=== PATIENT | female | born 2000 | race Hispanic/Latino ===

== ENCOUNTER 2025-02-16 20:08 | Emergency (ER) | payer SELFPAY ==
[2025-02-16] MEDS ORDERED: ONDANSETRON 4 MG/2 ML VIAL ONE ×2 (20:32→20:48)
[2025-02-16] MEDS ORDERED: KETOROLAC 30 MG/ML INJ ONE (20:33)
[2025-02-16] MEDS ORDERED: CEPHALEXIN 250 MG CAP ONE (20:33)
[2025-02-16] MEDS ORDERED: SMZ./TMP. 800/160 MG TABLET ONE (20:33)
[2025-02-16] MEDS ORDERED: MORPHINE 4 MG/ML SYR ONE (20:33)
[2025-02-16] MEDS ORDERED: TDAP (DIPHTH,PERTUSS(ACELL),TET VAC) 0.5 ML VIAL IMVAC ONE (20:34)
[2025-02-16] MEDS ORDERED: LORAZEPAM 1 MG TABLET ONE (20:34)
[2025-02-16] MEDS ORDERED: NA CHLORIDE 0.9% 1,000 ML ONE (20:34)
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
[2025-02-17] MEDS ORDERED: LIDOCAINE 1% 20 ML MDV ONE (00:48)
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
[2025-02-17 01:46] VITALS: TEMP 98.4
[2025-02-17 02:05] VITALS: O2SAT 100
[2025-02-17 02:06] VITALS: BP 104/70
== END 2025-02-17 01:36 | disposition home or self-care (01) ==
LOC: ER 20:08
DX: S01.81XA Laceration without foreign body of other part of head, initial encounter (principal); S06.0X9A Concussion with loss of consciousness of unspecified duration, initial encounter; S60.512A Abrasion of left hand, initial encounter; S19.9XXA Unspecified injury of neck, initial encounter; Y04.8XXA Assault by other bodily force, initial encounter
CPT/HCPCS: 12013; 36415; 70450; 70491; 84703; 96361; 96372; 96374; 96375; 99285; J2003; J2405; J7030; Q9967

== ENCOUNTER 2025-03-10 13:10 | Emergency (ER) | payer OTHER ==
--- OUTSIDE RECORDS SUMMARY | 2025-03-10 13:17 | XMS REPORT | Continuity of Care Document ---
Author Name Unknown Address [address] [facility] [place] [address] Organization [facility] [place] Address [address] [facility] [place] [address] Care Team Providers Care [place] [employer] Name Role Phone Pcp, Patient Does Not Have A Primary Care Physic charles Doctor Unassigned, [place] Attending Clinician U ASHLI Hurtado Attending Clinician ASHLI Lewis Attending Clinician Kennedi Barr RN, Anny Delgado Attending Clinician UnaAshli Marquez MD Attending Clinician + [phone] Jaclyn Catherine MD Attending Clinician [phone] CINDY MAXWELL Attending Clinician Unavailable CINDY MAXWELL Attending Clinician Unavailable CINDY MAXWELL Attending Clinician Unavailable Ultrasound, Ang-Mfkevin Attending Clinician UnavailCindy Vanegas MD Attending Clinician [phone] GUERA CRAWFORD Attending Clinician Unavailable GUERA CRAWFORD Attending Clinician Unavailable GUERA CRAWFORD Attending Clinician Unavailable Martha Lyles MD Attending Clinician [phone] PILLO HORNER Attending Clinician Unavailable PILLO HORNER Attending Clinician Unavailable Lab, Ang - Db Attending Clinician Unavailable FLACO NUNO Attending Clinician Flaco Minor MD Ikuvbogie Attending Clinician + SANG FRIAS Attending Clinician UnavailMARTHA Mason Attending Clinician Unavailable Doctor Unassigned, [place] Attending Clinician U navailable JUAN C, ANG CAM Attending Clinician Unavailable Juan C UREÑA, Ang uQezada Attending Clinician [phone] Jenni Vega MD Attending Clinician + [phone] Ivelisse UREÑA, Alondra Arteaga Attending Clinician [phone], Adc Lab Attending Clinician Unavailable GUERA CRAWFORD Admitting Clinician Unavailable CESIADARRIAN BENNETT Admitting Clinician Unavailable SHIMON GALVANSOL Admitting Clinician Kennedi Galvan MD, Ashli Admitting Clinician +- [phone] JUAN C, ANG CAM Admitting Clinician Unavailable Juan C UREÑA, Ang Quezada Admitting Clinician [phone] Payers Payer Name Policy Type Policy Number Effective Date Expirati on Date Source [facility] STAR [id number] 2024 00:00:00 [facility] [place] [facility] [id number] 00:00:00 [facility] [id number] 2023 00:00:00 Problems Condition Name Condition Details Condition Category Status Onset Date Resolution Date Last Treatment Date Treating Clinician Comments Source 34 weeks gestation of 34 weeks gestation of Disease Active 07-09 00:00: 00 [facility] labor in third trimester without delivery labor in third trimester without delivery Disease Active 07-09 00:00: 00 [facility] Single liveborn, born in hospital, delivered by vaginal delivery Single liveborn, born in hospital, delivered by vaginal delivery Disease Active 07-09 00:00: 00 [facility] Obesity (BMI 30-39.9) Obesity (BMI 30-39.9) Disease Active 06-11 00:00: 00 [facility] uterine contractio ns uterine contractio ns Disease Active 06-11 00:00: 00 [facility] Anemia of mother in , antepartum Anemia of mother in , antepartum Disease Active -20 00:00: 00 [facility] Anemia of mother in , antepartum Anemia of mother in , antepartum Disease Active 20 00:00: 00 [facility] 39 weeks gestation of 39 weeks gestation of Disease Active -06 00:00: 00 [facility] High-risk in third trimester High-risk in third trimester Disease Active -06 00:00: 00 [facility] 32 weeks gestation of 32 weeks gestation of Disease Active 0 -06 00:00: 00 [facility] Normal labor Normal labor Disease Resolve d 2022-11 0-22 00:00: 00 2024-07-09 00:00:00 2024-07-09 18:57:05 [facility] Liveborn infant, of horn , born in hospital by vaginal delivery Liveborn infant, of horn , born in hospital by vaginal delivery Disease Resolve d 2022-11 0-22 00:00: 00 2024-07-09 00:00:00 2024-07-09 18:56:51 [facility] 30 weeks gestation of 30 weeks gestation of Disease Resolve d 06 00:00: 00 2024-07-09 00:00:00 2024-07-09 18:56:31 [facility] Allergies, Adverse Reactions, Alerts Allergy Name Allergy Type Status Severity Reaction(s) Onset Date Inactive Date Treating Clinician Comments Source NO KNOWN ALLERGIE S Drug Class Active [facility] Family History Family Member Diagnosis Comments Start Date Stop Date Sourc e Maternal grandmother Hypertension [facility] Hy[facility] Social History Social Habit Start Date Stop Date Quantity Comments Source ASSERTION 2023-11-24 00:00:00 [facility] Gender identity [facility] History of Social function 2024-07-09 00:00:00 2024-07-09 00:00:00 [facility] Alcoholic beverage intake 2024-07-09 00:00:00 2024-07-09 00:00:00 Ex-drinker (finding) [facility] Alcohol intake 2024 00:00:00 2024 00:00:00 Ex-drinker (finding) [facility] Tobacco use and exposure 2023-07-31 00:00:00 2023-07-31 00:00:00 Smokeless tobacco non-user [facility] Sex assigned at 2000 00:00:00 2000 00:00:00 [facility] Smoking Status Start Date Stop Date Source Tobacco smoking consumption unknown [facility] Never smoked tobacco [facility] Medications Ordered Medication Name Filled Medication Name Start Date Stop Date Current Medication? Ordering Clinician Indication Dosage Frequency Signature (SIG) Comments Components Source medroxyPROG ESTERone (DEPO-PROVE RA) injection 150 mg 07-11 14:30: 00 Yes 150mg 150 mg, Intramuscu lar, [id number], First dose on 07/11/24 at 0930, Until Discontinu ed, Routine [facility] docusate 100 mg capsule 07-11 00:00: 00 Yes [id number] 102 200mg Take 2 capsules by mouth once daily as needed for Constipati on. [facility] ferrous sulfate 325 mg (65 mg iron) tablet 07-11 00:00: 00 Yes [id number] 102 325mg Take 1 tablet by mouth in the morning. [facility] ibuprofen 800 mg tablet 07-11 00:00: 00 Yes [id number] 102 800mg Take 1 tablet by mouth every 8 (eight) hours as needed (pain). Take with food or milk. [facility] rho(D) immune globulin (RHOPHYLAC) injection 300 mcg 07-10 02:18: 31 Yes 300ug [facility] HYDROcodone -acetaminop hen (NORCO 5) tablet 1 tablet 07-10 02:17: 45 Yes 1{tbl} [facility] ibuprofen (IBU) tablet 600 mg 07-10 02:17: 45 Yes 600mg 600 mg, Oral, Q6HPRN, Starting on Sat07/09/24 at 2116, Until Discontinu ed, Routine, Pain (scale 4-6) [facility] acetaminoph en (TYLENOL) tablet 650 mg 07-10 02:17: 45 Yes 650mg 650 mg, Oral, Q6HPRN, Starting on Sat07/09/24 at 2116, Until Discontinu ed, Routine, Pain (scale 1-3) [facility] diphenhydrA MINE (BENADRYL) tablet 25 mg 07-10 02:17: 45 Yes 25mg [facility] ondansetron (ZOFRAN (PF)) injection 4 mg 07-10 02:17: 45 Yes 4mg 4 mg, Slow IV Push, Q8HPRN, Starting on Sat07/09/24 at 2116, Until Discontinu ed, Routine, Nausea and Vomiting (N/V) [facility] simethicone (GAS RELIEF (SIMETHICON E)) chewable tablet 160 mg 07-10 02:17: 45 Yes 160mg [facility] docusate (COLACE) capsule 200 mg 07-10 02:17: 45 Yes 200mg [facility] magnesium hydroxide (MILK OF MAGNESIA) 400 mg/5 mL suspension 30 mL 07-10 02:17: 45 Yes 30mL [facility] benzocaine- menthol (DERMOPLAST ) 20-0.5 % topical spray 07-10 02:17: 44 Yes Topical, PRN, Starting on Sat07/09/24 at 2116, Until Discontinu ed, Routine, [facility]ineum discomfort [facility] fenta[facility] pivacaine 2 mcg/mL-0.1 % (PF) in NS 200 mL epidural infusion RTU 07-10 01:32: 00 07-10 11:47 :34 No Intra-op [facility] lidocaine-e pinephrine (XYLOCAINE W/EPINEPHRI NE) 1.5 %-1:200,000 injection 2024-0 8-16 01:29: 00 07-10 11:47 :34 No Epidural, ONCE INTRA PROCEDURE, Starting on Sat07/09/24 at 2029, Until Sat07/10/24 at 0647, Routine, Intra-op [facility] D5W-LR IV infusion 1,000 mL 07-09 23:59: 33 07-10 02:18 :30 No 1000mL at 1-125 mL/hr, IV Infusion, TITRATE, Starting on Sat07/09/24 at 1859, Until Sat07/09/24 at 2118, Routine [facility] ondansetron 4 mg disintegrat ing tablet 06-25 00:00: 00 07-11 00:00 :00 No [id number] 4mg Take 1 tablet by mouth every 8 (eight) hours as needed for Nausea and Vomiting (N/V). [facility] ondansetron (ZOFRAN) tablet 4 mg 06-12 19:00: 00 Yes 4mg 4 mg, Oral, Q8H, First dose (after last reorder) on Sat06/12/24 at 1400, Until Discontinu ed, Routine [facility] betamethaso ne acet,sod phos (CELESTONE SOLUSPAN) 6 mg/mL injection 12 mg 06-12 10:15: 00 06-12 10:15 :00 No 12mg 12 mg, Intramuscu lar, Q24H, 1 dose, First dose (after last modificati on) on Sat06/12/24 at 0515, Routine [facility] ondansetron (ZOFRAN) tablet 4 mg 06-12 02:00: 00 06-12 01:18 :00 No 4mg 4 mg, Oral, ONCE, 1 dose, On Sat06/11/24 at 2100, Routine [facility] [id number] fum-folic () tablet 1 tablet 06-11 14:00: 00 Yes 1{tbl} 1 tablet, Oral, DAILY, First dose on Sat06/11/24 at 0900, Until Discontinu ed, Routine [facility] alum-mag hydroxide-s imeth (MAG-AL PLUS) 200-200-20 mg/5 mL suspension 30 mL 06-11 13:57: 59 Yes 30mL 30 mL, Oral, Q6HPRN, Starting on Sat06/11/24 at 0857, Until Discontinu ed, Routine, Indigestio n [facility] docusate (COLACE) capsule 200 mg 06-11 13:57: 59 Yes 200mg 200 mg, Oral, QHSPRN, Starting on Sat06/11/24 at 0857, Until Discontinu ed, Routine, Constipati on [facility] magnesium hydroxide (MILK OF MAGNESIA) 400 mg/5 mL suspension 30 mL 06-11 13:57: 59 Yes 30mL 30 mL, Oral, QDAILYPRN, Starting on Sat06/11/24 at 0857, Until Discontinu ed, Routine, Constipati on [facility] D5W-LR IV infusion 1,000 mL 06-11 13:15: 00 Yes 1000mL at 75 mL/hr, IV Infusion, CONTINUOUS , Starting on Sat06/11/24 at 0815, Until Discontinu ed, Routine [facility] magnesium sulfate in water for injection 20 gram/500 mL (4 %) IV infusion 06-11 13:00: 00 Yes 2g/h 2 g/hr (50 mL/hr), IV Infusion, CONTINUOUS , Starting on Sat06/11/24 at 0800, Until Discontinu ed, IGNACIO [facility] magnesium sulfate in water for injection 20 gram/500 mL (4 %) IV infusion 06-11 10:30: 00 06-11 12:59 :53 No 2g/h 2 g/hr (50 mL/hr), IV Infusion, CONTINUOUS , Starting on Sat06/11/24 at 0530, Until Sat06/11/24 at 0759, IGNACIO [facility] betamethaso ne acet,sod phos (CELESTONE SOLUSPAN) 6 mg/mL injection 12 mg 06-11 10:15: 00 06-11 13:00 :29 No 12mg 12 mg, Intramuscu lar, Q24H, 2 doses, First dose on Sat06/11/24 at 0515, Last dose on Sat06/12/24 at 0515, Routine [facility] D5W-LR IV infusion 1,000 mL 06-11 10:00: 00 06-11 13:00 :29 No 1000mL at 75 mL/hr, IV Infusion, CONTINUOUS , Starting on Sat06/11/24 at 0500, Until Sat06/11/24 at 0800, Routine [facility] NaCl 0.9% (NS) bolus infusion 1,000 mL 06-11 09:15: 00 06-11 08:39 :00 No 1000mL at 999 mL/hr, 1,000 mL, IV Infusion, ONCE, 1 dose, On Sat06/11/24 at 0415, STAT [facility] ondansetron 4 mg disintegrat ing tablet 15 00:00: 00 06-25 00:00 :00 No [id number] 4mg Take 1 tablet by mouth every 8 (eight) hours as needed for Nausea and Vomiting (N/V). [facility] ondansetron 4 mg disintegrat ing tablet 0 6-17 00:00: 00 06-08 00:00 :00 No [id number] 4mg Take 1 tablet by mouth every 8 (eight) hours as needed for Nausea and Vomiting (N/V). [facility] ondansetron 4 mg disintegrat ing tablet 0 5-17 00:00: 00 05-11 00:00 :00 No [id number] 4mg Take 1 tablet by mouth every 8 (eight) hours as needed for Nausea and Vomiting (N/V). [facility] vitamin w/FA tablet -16 00:00: 00 07-11 00:00 :00 No [id number] 1{tbl} Take 1 tablet by mouth in the morning. [facility] ondansetron 4 mg disintegrat ing tablet 0 -16 00:00: 00 04-10 00:00 :00 No [id number] 4mg Take 1 tablet by mouth every 8 (eight) hours as needed for Nausea and Vomiting (N/V). [facility] TRINATAL RX 1 60 mg iron-1 mg tablet 2022-11 00:00: 00 Yes 1{tbl} Take 1 tablet by mouth every morning. [facility] vit no.124/iron /folic ( VITAMIN ORAL) 2022-11 08:54: 50 09-16 00:00 :00 No Take by mouth. [facility] witch Zenaida (TUCKS) 50 % topical pad 2022-11 00:32: 02 Yes Topical, Q4HPRN, Starting on 09/15/23 at 1932, Until Discontinu ed, Routine, rectal/hem orrhoidal pain [facility] docusate 100 mg capsule 2022-11 00:00: 00 07-11 00:00 :00 No [id number] 102 200mg Take 2 capsules by mouth once daily as needed for Constipati on. [facility] ferrous sulfate 325 mg (65 mg iron) tablet 2022-11 00:00: 00 07-11 00:00 :00 No [id number] 102 325mg Take 1 tablet by mouth in the morning and 1 tablet in the evening. [facility] vitamin w/FA tablet 2022-11 00:00: 00 03-10 00:00 :00 No [id number] 102 1{tbl} Take 1 tablet by mouth in the morning. [facility] ibuprofen 600 mg tablet 2022-11 00:00: 00 03-10 00:00 :00 No [id number] 102 600mg Take 1 tablet by mouth every 6 (six) hours as needed (Pain). Take with food or milk. [facility] rho(D) immune globulin (RHOGAM) syringe 300 mcg 2022-11 18:07: 27 Yes 300ug 300 mcg, Intramuscu lar, ONCE, For 1 dose, Conditiona l, Routine [facility] HYDROcodone -acetaminop hen (NORCO 5) 5-325 mg tablet 1 tablet 2022-11 18:07: 01 Yes 1{tbl} 1 tablet, Oral, Q6HPRN, Starting on 09/15/23 at 1307, Until Discontinu ed, Routine, Pain (scale 7-10) [facility] ibuprofen (IBU) tablet 600 mg 2022-11 18:07: 01 Yes 600mg 600 mg, Oral, Q6HPRN, Starting on 09/15/23 at 1307, Until Discontinu ed, Routine, Pain (scale 4-6) [facility] acetaminoph en (TYLENOL) tablet 650 mg 2022-11 18:07: 01 Yes 650mg 650 mg, Oral, Q6HPRN, Starting on 09/15/23 at 1307, Until Discontinu ed, Routine, Pain (scale 1-3) [facility] diphenhydrA MINE (BENADRYL) tablet 25 mg 2022-11 18:07: 01 Yes 25mg 25 mg, Oral, Q6HPRN, Starting on 09/15/23 at 1307, Until Discontinu ed, Routine, Sleep, Itching [facility] ondansetron (ZOFRAN (PF)) injection 4 mg 2022-11 18:07: 01 Yes 4mg 4 mg, Slow IV Push, Q8HPRN, Starting on 09/15/23 at 1307, Until Discontinu ed, Routine, Nausea and Vomiting (N/V) [facility] simethicone (GAS RELIEF (SIMETHICON E)) chewable tablet 160 mg 2022-11 18:07: 01 Yes 160mg 160 mg, Oral, PC+HSPRN, Starting on 09/15/23 at 1307, Until Discontinu ed, Routine, Gas [facility] docusate (COLACE) capsule 200 mg 2022-11 18:07: 01 Yes 200mg 200 mg, Oral, QDAILYPRN, Starting on 09/15/23 at 1307, Until Discontinu ed, Routine, Constipati on [facility] magnesium hydroxide (MILK OF MAGNESIA) 400 mg/5 mL suspension 30 mL 2022-11 18:07: 01 Yes 30mL 30 mL, Oral, QDAILYPRN, Starting on [place] 09/15/23 at 1307, Until Discontinu ed, Routine, Constipati on [facility] benzocaine- menthol (DERMOPLAST ) 20-0.5 % topical spray 2022-11 18:07: 01 Yes Topical, PRN, Starting on [place] 09/15/23 at 1307, Until Discontinu ed, Routine, Perineum discomfort [facility] oxytocin (PITOCIN) 30 units in NS 500 mL IV infusion 2022-11 14:52: 52 09-16 00:32 :06 No 600mL/h 600 mL/hr, IV Infusion, PRN, For post delivery uterine atony., Starting on [place] 09/15/[address] at 600 mL/hr for 1 hr then 150 mL/hr for 1 hr.
[facility] diphenhydrA MINE (BENADRYL) injection 25 mg 2022-11 13:00: 00 09-15 12:09 :00 No 25mg 25 mg, Intravenou s, ONCE, 1 dose, On [place] 09/15/23 at 0800, Routine [facility] vit no.124/iron /folic ( VITAMIN ORAL) 2022-11 09:55: 04 Yes Take by mouth. [facility] PIB fentaNYL-ro pivacaine 2 mcg/mL-0.1 % (PF) in NS 200 mL epidural infusion RTU 2022-11 09:05: 00 09-15 16:02 :38 No Epidural, ONCE INTRA PROCEDURE, Starting on [place] 09/15/23 at 0405, Until Discontinu ed, Routine, Intra-op [facility] ondansetron (ZOFRAN (PF)) injection 4 mg 2022-11 07:52: 21 09-16 00:32 :06 No 4mg 4 mg, Slow IV Push, Q8HPRN, Nausea and Vomiting (N/V), Starting on 09/15/23 at 0252
Do ses of ondansetro n 16 mg and above need to be administer ed via IV piggyback. For Dose >=24mg ECG monitoring is advisable.
[facility] oxytocin (PITOCIN) 30 units in NS 500 mL IV infusion 2022-11 07:51: 36 09-16 00:32 :06 No 2mU/min at 2-40 mL/hr, IV Infusion, TITRATE, Starting on 09/15/23 at 0251, Until 09/15/23 at 1932, IGNACIO [facility] D5W-LR IV infusion 1,000 mL 2022-11 07:50: 21 09-16 00:32 :06 No 1000mL at 1-125 mL/hr, IV Infusion, TITRATE, Starting on 09/15/23 at 0250, Until 09/15/23 at 1932, Routine [facility] ondansetron 4 mg disintegrat ing tablet 2022-11 00:00: 00 09-16 00:00 :00 No [id number] 4mg Take 1 tablet by mouth every 8 (eight) hours as needed for Nausea and Vomiting (N/V). [facility] PNV 67-iron ps-folate no.1-dha (VITAFOL ULTRA) 29 mg iron- 1 mg-200 mg Cap 2022-11 0- 00:00: 00 09-16 00:00 :00 No [id number] 1{capsu le} Take 1 capsule by mouth in the morning. [facility] ferrous sulfate (IRON, FERROUS SULFATE,) 325 mg (65 mg iron) tablet 08-14 00:00: 00 09-16 00:00 :00 No [id number] 325mg Take 1 tablet by mouth in the morning and 1 tablet in the evening. [facility] ondansetron 4 mg disintegrat ing tablet 08-06 00:00: 00 08-29 00:00 :00 No [id number] 4mg Take 1 tablet by mouth every 8 (eight) hours as needed for Nausea and Vomiting (N/V). [facility] vit no.124/iron /folic ( VITAMIN ORAL) 9-06 14:54: 36 Yes Take by mouth. [facility] ondansetron 4 mg tablet 8-19 00:00: 00 08-14 00:00 :00 No TAKE 1 TABLET BY MOUTH EVERY 6 HOURS NEEDED [facility] ondansetron 4 mg disintegrat ing tablet 3-10 00:00: 00 Yes 4mg Take 1 tablet by mouth. [facility] doxylamine- pyridoxine, vit B6, 10-10 mg per tablet 3-10 00:00: 00 07-11 00:00 :00 No 2{tbl} Take 2 tablets by mouth at bedtime. [facility] Immunizations Ordered Immunization Name Filled Immunization Name Date Status Comments Source TDAP 2024-06-25 00:00:00 Completed [facility] TDAP 2024-06-25 00:00:00 Completed [facility] TDAP Unknown Completed [facility] TDAP Unknown Completed [facility] TDAP Unknown Completed [facility] TDAP Unknown Completed [facility] TDAP Unknown Completed [facility] Vital Signs Vital Name Observation Time Observation Value Comments S ource Systolic blood pressure 2024-07-12 12:00:00 112 mm[Hg] [facility] Diastolic blood pressure 2024-07-12 12:00:00 71 mm[Hg] [facility] Heart rate 2024-07-12 12:00:00 59 /min [facility] Body temperature 2024-07-12 12:00:00 36.94 Kennedi [facility] Respiratory rate 2024-07-12 12:00:00 16 /min [facility] Oxygen saturation in Arterial blood by Pulse oximetry 2024-07-12 12:00:00 99 /min [facility] Systolic blood pressure 2024-07-09 20:09:00 117 mm[Hg] [facility] Diastolic blood pressure 2024-07-09 20:09:00 69 mm[Hg] [facility] Heart rate 2024-07-09 20:09:00 101 /min [facility] Body temperature 2024-07-09 20:09:00 35.94 Kennedi [facility] Body height 2024-07-09 20:09:00 160 cm [facility] Body weight 2024-07-09 20:09:00 74.844 kg [facility] BMI 2024-07-09 20:09:00 29.23 kg/m2 [facility] Systolic blood pressure 2024-06-25 21:09:00 119 mm[Hg] [facility] Diastolic blood pressure 2024-06-25 21:09:00 73 mm[Hg] [facility] Heart rate 2024-06-25 21:09:00 85 /min [facility] Body temperature 2024-06-25 21:09:00 36.44 Kennedi [facility] Respiratory rate 2024-06-25 21:09:00 18 /min [facility] Body height 2024-06-25 21:09:00 162.6 cm [facility] Body weight 2024-06-25 21:09:00 76.204 kg [facility] BMI 2024-06-25 21:09:00 28.84 kg/m2 [facility] Heart rate 2024-06-13 18:00:00 85 /min [facility] Systolic blood pressure 2024-06-13 17:06:00 120 mm[Hg] [facility] Diastolic blood pressure 2024-06-13 17:06:00 74 mm[Hg] [facility] Body temperature 2024-06-13 17:06:00 36.78 Kennedi [facility] Respiratory rate 2024-06-13 17:06:00 18 /min [facility] Oxygen saturation in Arterial blood by Pulse oximetry 2024-06-13 17:06:00 98 /min [facility] Body height 2024-06-11 07:41:00 160 cm [facility] Body weight 2024-06-11 07:41:00 80.196 kg [facility] BMI 2024-06-11 07:41:00 31.32 kg/m2 [facility] Systolic blood pressure 2024-05-12 19:53:00 104 mm[Hg] [facility] Diastolic blood pressure 2024-05-12 19:53:00 72 mm[Hg] [facility] Heart rate 2024-05-12 19:53:00 94 /min [facility] Body temperature 2024-05-12 19:53:00 36.72 Kennedi [facility] Respiratory rate 2024-05-12 19:53:00 16 /min [facility] Body height 2024-05-12 19:53:00 162.6 cm [facility] Body weight 2024-05-12 19:53:00 78.472 kg [facility] BMI 2024-05-12 19:53:00 29.70 kg/m2 [facility] Systolic blood pressure 2024-04-07 15:47:00 122 mm[Hg] [facility] Diastolic blood pressure 2024-04-07 15:47:00 77 mm[Hg] [facility] Heart rate 2024-04-07 15:47:00 81 /min [facility] Body temperature 2024-04-07 15:47:00 36.72 Kennedi [facility] Respiratory rate 2024-04-07 15:47:00 16 /min [facility] Body height 2024-04-07 15:47:00 162.6 cm [facility] Body weight 2024-04-07 15:47:00 75.433 kg [facility] BMI 2024-04-07 15:47:00 28.55 kg/m2 [facility] Systolic blood pressure 2024 13:41:00 100 mm[Hg] [facility] Diastolic blood pressure 2024 13:41:00 62 mm[Hg] [facility] Heart rate 2024 13:41:00 72 /min [facility] Body temperature 2024 13:41:00 36.56 Kennedi [facility] Respiratory rate 2024 13:41:00 15 /min [facility] Body height 2024 13:41:00 162.6 cm [facility] Body weight 2024 13:41:00 74.299 kg [facility] BMI 2024 13:41:00 28.12 kg/m2 [facility] Systolic blood pressure 2023-12-26 16:53:00 116 mm[Hg] [place] [facility] Diastolic blood pressure 2023-12-26 16:53:00 64 mm[Hg] [facility] Heart rate 2023-12-26 16:53:00 84 /min [facility] Body temperature 2023-12-26 16:53:00 36.72 Kennedi [facility] [facility] Res[facility] rate 2023-12-26 16:53:00 16 /min [facility] Body height 2023-12-26 16:53:00 162.6 cm [facility] Body weight 2023-12-26 16:53:00 71.215 kg [facility] BMI 2023-12-26 16:53:00 26.95 kg/m2 [facility] Systolic blood pressure 2023-12-19 16:20:00 112 mm[Hg] [facility] Diastolic blood pressure 2023-12-19 16:20:00 69 mm[Hg] [facility] Heart rate 2023-12-19 16:20:00 70 /min [facility] Body temperature 2023-12-19 16:20:00 36.72 Kennedi [facility] Respiratory rate 2023-12-19 16:20:00 16 /min [facility] Body height 2023-12-19 16:20:00 162.6 cm [facility] Body weight 2023-12-19 16:20:00 71.578 kg [facility] BMI 2023-12-19 16:20:00 27.09 kg/m2 [facility] Systolic blood pressure 2023-09-16 12:15:00 119 mm[Hg] [facility] Diastolic blood pressure 2023-09-16 12:15:00 84 mm[Hg] [facility] Heart rate 2023-09-16 12:15:00 90 /min [facility] Body temperature 2023-09-16 12:15:00 36.22 Kennedi [facility] Respiratory rate 2023-09-16 12:15:00 17 /min [facility] Oxygen saturation in Arterial blood by Pulse oximetry 2023-09-16 12:15:00 100 /min [facility] Body weight 2023-09-15 07:20:00 75.206 kg [facility] BMI 2023-09-15 07:20:00 29.37 kg/m2 [facility] Systolic blood pressure 2023-09-04 15:20:00 111 mm[Hg] [facility] Diastolic blood pressure 2023-09-04 15:20:00 73 mm[Hg] [facility] Heart rate 2023-09-04 15:20:00 95 /min Un[facility] Body temperature 2023-09-04 15:20:00 36.5 Knenedi [facility] Respiratory rate 2023-09-04 15:20:00 16 /min [facility] Body height 2023-09-04 15:20:00 160 cm [facility] Body weight 2023-09-04 15:20:00 76.204 kg [facility] BMI 2023-09-04 15:20:00 29.76 kg/m2 [facility] Systolic blood pressure 2023-08-14 14:23:00 117 mm[Hg] [facility] Diastolic blood pressure 2023-08-14 14:23:00 85 mm[Hg] [facility] Heart rate 2023-08-14 14:23:00 85 /min [facility] Body temperature 2023-08-14 14:23:00 36.78 Kennedi [facility] Respiratory rate 2023-08-14 14:23:00 16 /min [facility] Body height 2023-08-14 14:23:00 160 cm [facility] Body weight 2023-08-14 14:23:00 76.25 kg [facility] BMI 2023-08-14 14:23:00 29.78 kg/m2 [facility] Oxygen saturation in Arterial blood by Pulse oximetry 2023-08-14 14:23:00 98 /min [facility] Systolic blood pressure 2023-07-31 19:53:00 112 mm[Hg] [facility] Diastolic blood pressure 2023-07-31 19:53:00 63 mm[Hg] [facility] Heart rate 2023-07-31 19:53:00 79 /min Un[facility] Respiratory rate 2023-07-31 19:53:00 18 /min [facility] Body height 2023-07-31 19:53:00 160 cm [facility] Body weight 2023-07-31 19:53:00 72.122 kg [facility] BMI 2023-07-31 19:53:00 28.17 kg/m2 [facility] Systolic blood pressure 2024-07-12 12:00:00 112 mm[Hg] [facility] Diastolic blood pressure 2024-07-12 12:00:00 71 mm[Hg] [facility] Heart rate 2024-07-12 12:00:00 59 /min [facility] Body temperature 2024-07-12 12:00:00 36.94 Kennedi [facility] Respiratory rate 2024-07-12 12:00:00 16 /min [facility] Oxygen saturation in Arterial blood by Pulse oximetry 2024-07-12 12:00:00 99 /min [facility] Body height 2024-07-09 20:09:00 160 cm [facility] Body weight 2024-07-09 20:09:00 74.844 kg [facility] BMI 2024-07-09 20:09:00 29.23 kg/m2 [facility] Procedures Procedure Date / Time Performed Performing Clinician Source CBC WITH DIFF 2024-07-10 08:06:00 Jaycee Galvan [facility] CENTRAL NEURAXIAL BLOCK 2024-07-10 01:25:00 Kb Catherine [facility] CBC WITH DIFF 2024-07-10 00:31:00 [facility] HEPATITIS B SURFACE ANTIGEN 2024-07-10 00:31:00 [facility] HB ABO GROUPING 2024-07-10 00:31:00 [facility] RHO (D) IMMUNE GLOBULIN 2024-07-10 00:31:00 [facility] ADC OR SILVIA ONLY - RPR 2024-07-10 00:31:00 [facility] HIV 1/2 AG-AB WITH REFLEX 2024-07-10 00:31:00 [facility] HIV 1/2 AG-AB WITH REFLEX 2024-07-10 00:31:00 [facility] POCT URINALYSIS W/O SPECIFIC GRAVITY 2024-07-09 00:00:00 [facility] SECOND AND THIRD TRIMESTER ULTRASOUND 2024-07-06 20:07:00 [facility] TDAP VACCINE, >11 YRS, IM 2024-06-25 21:40:11 [facility] POCT URINALYSIS W/O SPECIFIC GRAVITY 2024-06-25 00:00:00 [facility] NON-STRESS TEST 2024-06-12 22:21:30 Brisa Mckeon [facility] HB ABO GROUPING 2024-06-11 15:32:00 Aga Delgado [facility] ADC ONLY - FERN TEST 2024-06-11 10:28:00 Adum, Martha Celestin [facility] CBC WITH DIFF 2024-06-11 08:33:00 Adum, Martha Fontenot [facility] URINALYSIS 2024-06-11 08:33:00 Adum, [facility] ANTIGEN 2024-06-11 08:33:00 Adum, Martha Celestin [facility] HB ABO GROUPING 2024-06-11 08:33:00 Adum, Martha Melissa [facility] ADC CLC OR LCC ONLY - WET PREP 2024-06-11 08:33:00 Adum, Martha Celestin [facility] URINE CULTURE 2024-06-11 08:33:00 Adum, Martha Bordene [facility] GC & CHLAMYDIA AMPLIFIED ASSAY 2024-06-11 08:33:00 Adum, Martha Celestin [facility] GROUP B STREPTOCOCCUS BY PCR 2024-06-11 08:33:00 Adum, Martha Celestin [facility] ADC OR SILVIA ONLY - RPR 2024-06-11 08:33:00 Adum, Martha Celestin [facility] HIV 1/2 AG-AB WITH REFLEX 2024-06-11 08:33:00 Adum, Martha Celestin [facility] POCT URINALYSIS W/O SPECIFIC GRAVITY 2024-05-12 00:00:00 Shimon Galvansol [facility] SECOND AND THIRD TRIMESTER ULTRASOUND 2024-04-24 14:51[facility] W/O SPECIFIC GRAVITY 2024-04-07 00:00:00 Shimon Galvansol [facility] SCANNED LAB RESULTS 2024-03-23 14:46:32 Doctor U henok, [place] [facility] HCV ANTIBODY 2024 15:44:00 Shimon Galvansol [facility] POCT URINALYSIS W/O SPECIFIC GRAVITY 2024 00:00:00 Shimon Galvansol [facility] US OB TRANSVAGINAL 2023-12-26 17:03:04 Kevin Galvan [facility] CENTER MACHINE OPERATOR CLINIC ULTRASOUND 2023-12-26 06:01:00 Doc tor Unassigned, [place] [facility] POCT URINALYSIS W/O SPECIFIC GRAVITY 2023-12-26 00:00[facility] CBC (INCLUDES DIFF/PLT)-Q 2023-12-25 21:00:00 TimoteoRoa [facility] US OB TRANSVAGINAL 2023-12-19 16:59:40 Kevin Galvanmayelin [facility] PAP SMEAR-LIQUID BASED-CP 2023-12-19 16:22:00 [facility] CENTER MACHINE OPERATOR CLINIC ULTRASOUND 2023-12-19 06:01:00 Doc melanie Unassigned, [place] [facility] POCT TEST 2023-12-19 00:00:00 [facility] POCT URINALYSIS W/O SPECIFIC GRAVITY 2023-12-19 00:00:00 [facility] CBC WITH DIFF 2023-09-16 09:29:00 Irizarry [facility] CENTRAL NEURAXIAL BLOCK 2023-09-15 08:50:00 Tylor Vega [facility] CBC WITH DIFF 2023-09-15 08:18:00 Juan C [facility] HEPATITIS B SURFACE ANTIGEN 2023-09-15 08:18:00 Irizarry [facility] HB ABO GROUPING 2023-09-15 08:18:00 Juan C [facility] RHO (D) IMMUNE GLOBULIN 2023-09-15 08:18:00 [facility] ADC OR SILVIA ONLY - RPR 2023-09-15 08:18:00 [facility] HIV 1/2 AG-AB WITH REFLEX 2023-09-15 08:18:00 [facility] CONSENT/REFUSAL FOR DIAGNOSIS AND TREATMENT 2023-09-15 07:14:54 Doctor Unassigned, [place] [facility] >14 WEEKS US LIMITED 2023-09-04 18:12:41 Adum, Martha Celestin [facility] DSU PRE-OP 2023-09-04 05:01:00 Doctor Unass igned, [place] [facility] POCT URINALYSIS W/O SPECIFIC GRAVITY 2023-09-04 00:00:00 Adum, Martha Celestin [facility] SECOND AND THIRD TRIMESTER ULTRASOUND 2023-08-26 16:38:00 Adum, Martha Celestin [facility] CBC WITH DIFF 2023-08-26 15:47:00 [facility] 2023-08-26 15:47:00 Adum, Martha Melissa [facility] ASSIGNMENT OF BENEFITS 2023-08-26 15:32:33 Docto r Unassigned, [place] [facility] CONSENT/REFUSAL FOR DIAGNOSIS AND TREATMENT 2023-08-26 15:32:16 Doctor Unassigned, [place] [facility] EXTERNAL PROVIDER RECORDS 2023-08-16 05:01:00 Doctor Unassigned, [place] [facility] POCT URINALYSIS W/O SPECIFIC GRAVITY 2023-08-14 00:00:00 Adum, Martha Celestin [facility] ASSIGNMENT OF BENEFITS 2023-07-31 19:28:17 Docto r Unassigned, [place] [facility] POCT URINALYSIS W/O SPECIFIC GRAVITY 2023-07-31 00:00:00 Adum, Martha Celestin [facility] Encounters Start Date/Time End Date/Time Encounter Type Admission Type Attending Clinicians Care Facility Care Department Encounter ID Source 2024-06-13 14:39:26 Outpatient P [facility] [id number] [facility] 2024-06-11 05:03:49 Outpatient P [facility] J[facility] [id number] [facility] 2024-03-23 00:00:00 2025-01-09 02:09:53 Orders Only Doctor Unassigned, [place] Doctor Unassigned, [place] [facility] 1.2.840.114 350.1.13.10 4.2.7.2.686 [id number] [facility] 2024-09-01 00:00:00 2024-10-03 18:21:36 Patient Secure Msg Doctor Unassigned, [place] Doctor Unassigned, [place] [facility] 1.2.840.114 350.1.13.10 4.2.7.2.686 [id number] [facility] 2024-09-01 13:15:00 2024-09-01 13:15:00 Outpatient R MAHMOOD-NATALIE S, ASHLI MAHMOOD-NATALIE S, ASHLI [facility] [id number] [facility] 2024-08-21 13:15:00 2024-08-21 13:15:00 Outpatient R MAHMOOD-NATALIE S, ASHLI MAHMOOD-NATALIE S, ASHLI [facility] [id number] [facility] 2024-07-09 00:00:00 2024-08-21 08:19:37 Telephone Anny Barr E Anny Barr E [facility] 1.2.840.114 350.1.13.10 4.2.7.2.686 [id number] [facility] 2024-08-14 15:30:00 2024-08-14 15:30:00 Outpatient R MAHMOOD-NATALIE S, ASHLI MAHMOOD-NATALIE S, ASHLI [facility] [id number] [facility] 2024-08-10 13:45:00 2024-08-10 13:45:00 Outpatient R MAHMOOD-NATALIE S, ASHLI MAHMOOD-NATALIE S, ASHLI [facility] [id number] [facility] 2024-08-07 13:45:00 2024-08-07 13:45:00 Outpatient R MAHMOOD-NATALIE S, ASHLI MAHMOOD-NATALIE S, ASHLI [facility] [id number] [facility] 2024-07-09 18:35:00 2024-07-12 13:45:00 Inpatient X TIMOTEO-NATALIE S, ASHLI MAHMOOD-NATALIE S, ASHLI [facility] JAH [id number] [facility] 2024-07-09 18:35:00 2024-07-12 13:45:00 Hospital Encounter Keyonai sShimonAshli [facility] 1.2840.114 350.1.13.10 4.2.7.2.686 [id number] [facility] 2024-07-09 20:23:00 2024-07-09 21:56:00 Anesthesia Event Catherine, Jaclyn [facility] 1.0.114 350.1.13.10 4.2.7.2.686 [id number] [facility] 2024-07-09 14:30:00 2024-07-09 15:23:30 Outpatient R TIMOTEO-NATALIE S, ASHLI TIMOTEO-NATALIE S, ASHLI [facility] [id number] [facility] 2024-07-09 14:30:00 2024-07-09 15:23:30 Routine Visit Timoteo-Natalie sShimonAshli [facility] 1.0.114 350.1.13.10 4.2.7.2.686 [id number] [facility] 2024-07-06 14:30:00 2024-07-06 15:05:29 Outpatient R CINDY MAXWELL KARIN FOX, KARIN [facility] [id number] [facility] 2024-07-06 14:30:00 2024-07-06 15:05:29 Commissary Helper Visit Ultrasound, Cindy Stokes [facility] CENTER MACHINE OPERATOR [employer] [facility] 1.20.114 350.1.13.10 4.2.7.2.686 [id number] [facility] 2024-06-25 16:15:00 2024-06-25 16:39:45 Outpatient R MAHMOOD-NATALIE S, ASHLI MAHMOOD-NATALIE S, ASHLI [facility] [id number] [facility] 2024-06-25 16:15:00 2024-06-25 16:39:45 Routine Visit Mahmood-Natalie s, Ashli [facility] 1.2.840.114 350.1.13.10 4.2.7.2.686 [id number] [facility] 2024-06-11 02:38:00 2024-06-13 14:39:00 Outpatient GUERA FIELDS, GUERA CRAWFORD, [facility] [id number] [facility] 2024-06-11 02:38:00 2024-06-13 14:39:00 Hospital Encounter Martha Lyles, [facility] 1.2.840.114 350.1.13.10 4.2.7.2.686 [id number] [facility] 2024-06-11 16:15:00 2024-06-11 16:15:00 Outpatient R MAHMOOD-NATALIE S, ASHLI MAHMOOD-NATALIE S, ASHLI [facility] [id number] [facility] 2024-06-08 00:00:00 2024-06-08 11:10:44 Telephone Mahmood-Natalie s, Ashli [facility] 1.2.840.114 350.1.13.10 4.2.7.2.686 [id number] [facility] 2024-06-04 14:00:00 2024-06-04 14:00:00 Outpatient R MAHMOOD-NATALIE S, ASHLI MAHMOOD-NATALIE S, ASHLI [facility] [id number] [facility] 2024-06-02 14:45:00 2024-06-02 14:45:00 Outpatient R MAHOMOD-NATALIE S, ASHLI MAHMOOD-NATALIE S, [facility] [id number] [facility] 2024-06-01 15:30:00 2024-06-01 15:30:00 Outpatient R PILLO HORNER FARANAK [facility] [id number] [facility] 2024-05-26 13:15:00 2024-05-26 13:15:00 Outpatient R MAHMOOD-NATALIE S, ASHLI MAHMOOD-NATALIE S, [facility] [id number] [facility] 2024-05-15 13:00:00 2024-05-15 13:15:00 Commissary Helper Visit Lab, Brayan Pedersen Mahmood-Natalie s, [facility] 1..840.114 350.1.13.10 4.2.7.2.686 [id number] [facility] 2024-05-15 13:00:00 2024-05-15 13:00:00 Outpatient R MAHMOOD-NATALIE S, ASHLI MAHMOOD-NATALIE S, [facility] [id number] [facility] 2024-05-12 14:30:00 2024-05-12 15:08:01 Outpatient R MAHMOOD-NATALIE S, ASHLI MAHMOOD-NATALIE S, [facility] [id number] [facility] 2024-05-12 14:30:00 2024-05-12 15:08:01 Routine Visit Mahomod-Natalie s [facility] 1.840.114 350.1.13.10 4.2.7.2.686 [id number] [facility] 2024-05-11 00:00:00 2024-05-11 10:54:41 Telephone Mahmood-Natalie s [facility] 1.2.840.114 350.1.13.10 4.2.7.2.686 [id number] [facility] 2024-04-23 00:00:00 2024-04-24 15:22:16 [facility] 1.2.840.114 350.1.13.10 4.2.7.2.686 [id number] [facility] 2024-04-24 09:00:00 2024-04-24 09:49:43 Outpatient P FLACO NUNO [facility] [id number] [facility] 2024-04-24 09:00:00 2024-04-24 09:49:43 Commissary Helper Visit Ultrasound, Flaco Higgins [facility] CENTER MACHINE OPERATOR [employer] [facility] 1.2.840.114 350.1.13.10 4.2.7.2.686 [id number] [facility] 2024-04-10 00:00:00 2024-04-10 11:14:24 Telephone MahmoodAdriana quiles [facility] 1.2.840.114 350.1.13.10 4.2.7.2.686 [id number] [facility] 2024-04-07 10:30:00 2024-04-07 10:57:38 Outpatient R CE Quiles ASHLIMARICHUY Quiles [facility] [id number] [facility] 2024-04-07 10:30:00 2024-04-07 10:57:38 [facility] 1.2.840.114 350.1.13.10 4.2.7.2.686 [id number] [facility] 2024-03-20 00:00:00 2024-03-20 00:00:00 Telephone Ce quiles [facility] 1.2.840.114 350.1.13.10 4.2.7.2.686 [id number] [facility] 2024-03-19 00:00:00 2024-03-19 00:00:00 Telephone Martha Lyles [facility] 1.2.840.114 350.1.13.10 4.2.7.2.686 [id number] [facility] 2024-03-17 00:00:00 2024-03-17 00:00:00 Telephone Ce quiles [facility] 1.2.840.114 350.1.13.10 4.2.7.2.686 [id number] [facility] 2024-03-16 00:00:00 2024-03-16 00:00:[address] [facility] 1.2.840.114 350.1.13.10 4.2.7.2.686 [id number] [facility] 2024 11:00:00 2024 11:15:00 Commissary Helper Visit Lab, Brayan - Slava [facility] 1.2.840.114 350.1.13.10 4.2.7.2.686 [id number] [facility] 2024 08:00:00 2024 08:53:33 Outpatient R ASHLI HIGGINS [facility] [id number] [facility] 2024 08:00:00 2024 08:53:33 Routine Visit Keyonai Shimon quilessol [facility] 1.2.840.114 350.1.13.10 4.2.7.2.686 [id number] [facility] 2024 00:00:00 2024 00:00:00 Case [facility] 1.2.840.114 350.1.13.10 4.2.7.2.686 [id number] [facility] 2024-02-20 09:04:00 2024-02-20 13:00:00 Emergency E SANG FRIAS [facility] [id number] [address] [place] [address] 2024-02-11 10:45:00 2024-02-11 10:45:00 Outpatient R ASHLI HIGGINS [facility] [id number] [facility] 2024-02-07 00:00:00 2024-02-07 00:00:00 [facility] 1.2.840.114 350.1.13.10 4.2.7.2.686 [id number] [facility] 2024-01-23 13:15:00 2024-01-23 13:15:00 Outpatient R CE S, ASHLI TIMOTEO-NATALIE S [facility] [id number] [facility] 2024-01-01 13:00:00 2024-01-01 13:00:00 Outpatient MARTHA BARTLETT [facility] [id number] [facility] 2023-12-26 10:00:00 2023-12-26 11:05:52 Outpatient R CE S, ASHLI TIMOTEO-NATALIE S [facility] [id number] [facility] 2023-12-26 10:00:00 2023-12-26 11:05:52 Routine Visit Ashli Higgins [facility] 1.2.840.114 350.1.13.10 4.2.7.2.686 [id number] [facility] 2023-12-26 00:00:00 2023-12-26 00:00:00 Telephone Ashli Higgins [facility] 1.2.840.114 350.1.13.10 4.2.7.2.686 [id number] [facility] 2023-12-26 00:00:00 2023-12-26 00:00:00 Orders Only Doctor Unassigned, [place] [facility] 1.2.840.114 350.1.13.10 4.2.7.2.686 [id number] [facility] 2023-12-25 00:00:00 2023-12-25 00:00:00 Orders Only MahmoodKrzysztof quiles Ashli [facility] 1.2.840.114 350.1.13.10 4.2.7.2.686 [id number] [facility] 2023-12-23 00:00:00 2023-12-23 00:00:00 Telephone Ce quiles Ashli [facility] 1.2.840.114 350.1.13.10 4.2.7.2.686 [id number] [facility] 2023-12-19 10:00:00 2023-12-19 10:36:22 Outpatient R ASHLI HIGGINS MARISOL [facility] [id number] [facility] 2023-12-19 10:00:00 2023-12-19 10:36:22 Initial Visit Ashli Higgins [facility] 1.2.840.114 350.1.13.10 4.2.7.2.686 [id number] [facility] 2023-12-19 00:00:00 2023-12-19 00:00:00 Orders Only Doctor Unassigned, [place] [facility] 1.2.840.114 350.1.13.10 4.2.7.2.686 [id number] [facility] 2023-10-08 13:00:00 2023-10-08 13:00:00 Outpatient R ANG IRIZARRY [facility] [id number] [facility] 2023-09-15 02:19:00 2023-09-16 11:30:00 Inpatient X JUAN C ANG [facility] [id number] [facility] 2023-09-15 02:19:00 2023-09-16 11:30:00 Hospital Encounter Ang Irizarry Damien [facility] 1.2.840.114 350.1.13.10 4.2.7.2.686 [id number] [facility] 2023-09-15 03:50:00 2023-09-15 11:02:00 Anesthesia Event Jenni Vega Sandhya Rani [facility] 1.2.840.114 350.1.13.10 4.2.7.2.686 [id number] [facility] 2023-09-11 10:45:00 2023-09-11 10:45:00 Outpatient R MARTHA LYLES [facility] [id number] [facility] 2023-09-04 09:15:00 2023-09-04 10:51:04 Outpatient R MARTHA LYLES [facility] [id number] [facility] 2023-09-04 09:15:00 2023-09-04 10:51:04 Routine Visit Martha Lyles [facility] 1.2.840.114 350.1.13.10 4.2.7.2.686 [id number] [facility] 2023-09-04 00:00:00 2023-09-04 00:00:00 Orders Only Doctor Unassigned, [place] [facility] 1.2.840.114 350.1.13.10 4.2.7.2.686 [id number] [facility] 2023-08-28 10:45:00 2023-08-28 11:00:00 Routine Visit Adeduin, Martha Celestin [facility] 1.2.840.114 350.1.13.10 4.2.7.2.686 [id number] [facility] 2023-08-28 10:45:00 2023-08-28 10:45:00 [id number] 2023-08-28 00:00:00 2023-08-28 00:00:00 Refill Trupti Martha Celestin [facility] 1.2.840.114 350.1.13.10 4.2.7.2.686 [id number] [facility] 2023-08-26 11:00:00 2023-08-26 11:46:46 Commissary Helper Visit Ultrasound, Ang-Mfm Michelle Lylesian Guera Rosa [facility] MACHINE OPERATOR [employer] [facility] 1.2.840.114 350.1.13.10 4.2.7.2.686 [id number] [facility] 2023-08-26 11:00:00 2023-08-26 11:46:46 Outpatient GUERA FIELDS SANGEETA [facility] [id number] [facility] 2023-08-26 10:00:00 2023-08-26 10:52:49 Commissary Helper Visit 2, Adc Lab Adum, [facility] 1.2.840.114 350.1.13.10 4.2.7.2.686 [id number] [facility] 2023-08-26 00:00:00 2023-08-26 00:00:00 Orders Only Doctor Unassigned, [place] [facility] 1.2.840.114 350.1.13.10 4.2.7.2.686 [id number] 009 [id number] [facility] 2023-08-16 00:00:00 2023-08-16 00:00:00 Orders Only Doctor Unassigned, [place] [facility] 1.2.840.114 350.1.13.10 4.2.7.2.686 [id number] 009 [id number] [facility] 2023-08-14 09:30:00 2023-08-14 10:19:34 Outpatient R ADUM, [facility] [id number] [facility] 2023-08-14 09:30:00 2023-08-14 10:19:34 Routine Visit Adeduin Martha [facility] 1.2.840.114 350.1.13.10 4.2.7.2.686 [id number] [facility] 2023-08-05 00:00:00 2023-08-05 00:00:00 Telephone Adum, Martha [facility] 1.2.840.114 350.1.13.10 4.2.7.2.686 [id number] 134 [id number] [facility] 2023-07-31 14:30:00 2023-07-31 15:22:51 Initial Visit Adeduin [facility] 1.2.840.114 350.1.13.10 4.2.7.2.686 [id number] 134 [id number] [facility] 2023-07-31 14:30:00 2023-07-31 15:22:51 Outpatient R MARTHA LYLES [facility] [id number] [facility] 2023-07-31 00:00:00 2023-07-31 00:00:00 Orders Only Doctor Unassigned, [place] [facility] 1.840.114 350.1.13.10 4.2.7.2.686 [id number] 009 [id number] [facility] 2023-07-31 00:00:00 2023-07-31 00:00:00 Telephone AdMartha denny [facility] 1.840.114 350.1.13.10 4.2.7.2.686 [id number] 134 [id number] [facility] Results Test Description Test Time Test Comments Results Result Co mments Source [facility] with Llwmjvrakflb9727-10-74 08:36:01* Test Item Value Reference Range Interpretation Comme nts WBC (test code = 6690-2) 11.51 4.30-11.10 H RBC (test code = 789-8) 3.65 3.93-5.25 L HGB (test code = 718-7) 10.0 g/dL 11.6-15.0 L HCT (test code = 4544-3) 30.7 % 35.7-45.2 L MCV (test code = 787-2) 84.1 fL 80.6-95.5 MCH (test code = 785-6) 27.4 pg 25.9-32.8 MCHC (test code = 786-4) 32.6 g/dL 31.6-35.1 RDW-SD (test code = 01279-4) 43.1 fL 39.0-49.9 RDW-CV (test code = 788-0) 13.9 % 12.0-15.5 PLT (test code = 777-3) 209 166-358 MPV (test code = 88755-9) 10.6 fL 9.5-12.9 NRBC/100 WBC (test code = 1272003539) 0.0 0.0-10.0 NRBC x10^3 (test code = 7768360014) See_Comment [Automated messa ge] The system which generated this result transmitted reference range: 10*3/?L. The reference range was not used to interpret this result as normal/abnormal. GRAN MAT (NEUT) % (test code = 770-8) 70.5 % IMM GRAN % (test code = 2299661231) 0.50 % LYMPH % (test code = 736-9) 19.2 % MONO % (test code = 5905-5) 9.4 % EOS % (test code = 713-8) 0.1 % BASO % (test code = 706-2) 0.3 % GRAN MAT x10^3(ANC) (test code = 3385632859) 8.11 10*3/uL 1.88-7.09 H IMM GRAN x10^3 (test code = 1334984400) 0.06 10*3/uL 0.00-0.06 LYMPH x10^3 (test code = 731-0) 2.21 10*3/uL 1.32-3.29 MONO x10^3 (test code = 742-7) 1.08 10*3/uL 0.33-0.92 H EOS x10^3 (test code = 711-2) 0.03-0.39 L BASO x10^3 (test code = 704-7) 0.04 10*3/uL 0.01-0.07 Lab Interpretation (test code = 29449-1) Abnormal [facility] Vegolnn2574-33-44 07:35:13 * Test Item Value Reference Range Interpretation Comme nts HBsAg Semi-Quantitative (roosevelt t code = 5195-3) 0.07 Negative [facility] HospitalR[facility] (D) IMMUNE [id number] 02:53:46* Test Item Value Reference Range Interpretation Comme nts RHIG CANDIDATE? (test code = 5188) No- see comment Patient is not a candidate for RhIg- Patient is Rh Positive.Performed at [facility] Laboratory Services - [facility] Blood [address] [place] [phone] Free: [phone] No. [id number] [facility] HospitalHIV 1/2 Ag-Ab with Kemhex4375-44-90 02:06:33* Test Item Value Reference Range Interpretation Comme nts HIV Semi-quantitative (test code = 77368-3) 0.13 Negative SEGUNDO (test code = SEGUNDO) Non-reactive for HIV-1 antigen and HIV-1/HIV-2 antibodies. ?No laboratory evidence of HIV infection. ?Repeat in 2-4 weeks if acute HIV infection is suspected. [facility] Gdujg2156-50-91 01:25:00 Jaclyn Catherine MD ? ? 07/09/2024 ?8:47 PM Central Neuraxial Block Date/Time: 07/09/2024 8:25 PM Performed by: Jaclyn Catherine MDAuthorized by: Jaclyn Catherine MD ?Patient Location: OBEnd Time: 07/09/2024 8:40 PMReason for Block: Labor analgesia, OB request and Patient requestStaff: ?Anesthesiologist: Jaclyn Catherine MD ?Performed by: anesthesiologistPreanesthetic Checklist: timeout performed, risks and benefits explained, pre-op evaluation, patient identified, IV checked and anesthesia consentProcedure: ?Type of Neuraxial: Epidural and Continuous ? Sterility Prep cap, drape, gloves and handhygiene ? ?Sedation Level no sedation ?Patient Position: sitting ?Prep: Betadine ? ?Monitoring: NIBP, heart rate, heart rate / toco and continuous pulse ox ?Location: lumbar (1-5) ?Lumbar: L4-L5 ?Approach: midline ? ?Technique: BENJAMIN saline ?Guidance with: landmark technique}Epidural/Spinal [place] and/or Catheter: ?Epidural/Spinal Kit: BBraun ?Needle Gauge: 17 G ?Needle Length: 3.5 in (8.89 cm) ?Needle Insertion Depth: 5 ?Catheter Type: multiport ? ?Catheter Size: 19 G ? ?Catheter at Skin Depth: 10 ?Number of Attempts: 1 ?Test Dose: lidocaine 1.5% with epinephrine 1-to-200,000 and negative ? ?Dose: 5 cc ? ?Catheter Securement Method: clear occlusive dressing, liquid medical adhesive and surgical tapeAssessment: ?Sensory Level: below T10 ?Block Outcome: anesthesia achieved, appropriate motor block, appropriate sensory block, no apparent complications, pain relieved, patient comfortable, patient satisfied, patient tolerated procedure well and positive pain relief ? ?Procedure Assess ment: patient tolerated procedure well with no complicationsUnThe [facility] CampusCB with Cdbffxzrgwvi0267-62-86 00:42:00* Test Item Value Reference Range Interpretation Comme nts WBC (test code = 6690-2) 11.31 4.30-11.10 H RBC (test code = 789-8) 3.68 3.93-5.25 L HGB (test code = 718-7) 10.2 g/dL 11.6-15.0 L HCT (test code = 4544-3) 30.9 % 35.7-45.2 L MCV (test code = 787-2) 84.0 fL 80.6-95.5 MCH (test code = 785-6) 27.7 pg 25.9-32.8 MCHC (test code = 786-4) 33.0 g/dL 31.6-35.1 RDW-SD (test code = 22498-2) 43.5 fL 39.0-49.9 RDW-CV (test code = 788-0) 14.1 % 12.0-15.5 PLT (test code = 777-3) 226 166-358 MPV (test code = 40813-5) 10.7 fL 9.5-12.9 NRBC/100 WBC (test code = 4960443266) 0.0 0.0-10.0 NRBC x10^3 (test code = 0861592404) See_Comment [Automated messa ge] The system which generated this result transmitted reference range: 10*3/?L. The reference range was not used to interpret this result as normal/abnormal. GRAN MAT (NEUT) % (test code = 770-8) 75.7 % IMM GRAN % (test code = 6916169588) 0.40 % LYMPH % (test code = 736-9) 15.3 % MONO % (test code = 5905-5) 8.1 % EOS % (test code = 713-8) 0.1 % BASO % (test code = 706-2) 0.4 % GRAN MAT x10^3(ANC) (test code = 0006809435) 8.57 10*3/uL 1.88-7.09 H IMM GRAN x10^3 (test code = 8919321682) 0.04 10*3/uL 0.00-0.06 LYMPH x10^3 (test code = 731-0) 1.73 10*3/uL 1.32-3.29 MONO x10^3 (test code = 742-7) 0.92 10*3/uL 0.33-0.92 EOS x10^3 (test code = 711-2) 0.03-0.39 L BASO x10^3 (test code = 704-7) 0.04 10*3/uL 0.01-0.07 Lab Interpretation (test code = 41890-0) Abnormal [facility] HospitalType and Screen - ONCE [id number] 00:38:00 * Test Item Value Reference Range Interpretation Comme nts ABO & RH (test code = 20) O POSITIVE IAT (test code = 1185) Negative [facility] HospitalPOCT Urinalysis w/o Specific Bclpfbs9709-17-09 20:09:00* Test Item Value Reference Range Interpretation Comme nts POCT PH U (test code = 3254) n.a 5-8 POCT U LEUK EST (test code = 3263) n.a Negative - Negative POCT U NIT (test code = 3262) n.a Negative - Negati ve POCT U PROT (test code = 3259) negative Negative - Negat vasquez POCT U GLU (test code = 3256) negative Negative - Negati ve POCT U KETONE (test code = 3258) n.a Negative - Neg ative POCT U BLD (test code = 3257) n.a Negative - Negati ve [facility] HospitalPOCT Urinalysis w/o Specific Gurniof7696-53-41 21:24:00* Test Item Value Reference Range Interpretation Comme nts POCT PH U (test code = 3254) n/a 5-8 POCT U LEUK EST (test code = 3263) n/a Negative - N egative POCT U NIT (test code = 3262) n/a Negative - Negati ve POCT U PROT (test code = 3259) neg Negative - Negat vasquez POCT U GLU (test code = 3256) neg Negative - Negati ve POCT U KETONE (test code = 3258) n/a Negative - Neg ative POCT U BLD (test code = 3257) n/a Negative - Negati ve [facility] HospitalAD or Silvia Only - Ysn2761-44-14 08:04:00* Test Item Value Reference Range Interpretation Comme nts RPR (Qualitative) (test code = 90583-0) Nonreactive Nonreactive Lab Interpretation (test cod e = 56036-5) Normal [facility] HospitalHepatitis B Surface Wytkkzr0456-77-15 18:43:28 * Test Item Value Reference Range Interpretation Comme nts HBsAg Semi-Quantitative (roosevelt t code = 5195-3) 0.07 Negative [facility] HospitalHIV 1/2 Ag-Ab with Biaurv0112-32-43 12:40:45* Test Item Value Reference Range Interpretation Comme nts HIV Semi-quantitative (test code = 50838-4) 0.15 Negative SEGUNDO (test code = SEGUNDO) Non-reactive for HIV-1 antigen and HIV-1/HIV-2 antibodies. ?No laboratory evidence of HIV infection. ?Repeat in 2-4 weeks if acute HIV infection is suspected. [facility] HospitalCb with Lryc0443-68-02 09:15:49* Test Item Value Reference Range Interpretation Comme nts WBC (test code = 6690-2) 9.28 4.30-11.10 RBC (test code = 789-8) 3.35 3.93-5.25 L HGB (test code = 718-7) 9.3 g/dL 11.6-15.0 L HCT (test code = 4544-3) 27.7 % 35.7-45.2 L MCV (test code = 787-2) 82.7 fL 80.6-95.5 MCH (test code = 785-6) 27.8 pg 25.9-32.8 MCHC (test code = 786-4) 33.6 g/dL 31.6-35.1 RDW-SD (test code = 34096-3) 38.5 fL 39.0-49.9 L RDW-CV (test code = 788-0) 12.8 % 12.0-15.5 PLT (test code = 777-3) 290 166-358 MPV (test code = 97154-6) 9.9 fL 9.5-12.9 NRBC/100 WBC (test code = 3402360650) 0.0 0.0-10.0 NRBC x10^3 (test code = 1583658945) See_Comment [Automated messa ge] The system which generated this result transmitted reference range: 10*3/?L. The reference range was not used to interpret this result as normal/abnormal. GRAN MAT (NEUT) % (test code = 770-8) 63.2 % IMM GRAN % (test code = 3187980465) 0.40 % LYMPH % (test code = 736-9) 26.2 % MONO % (test code = 5905-5) 9.7 % EOS % (test code = 713-8) 0.3 % BASO % (test code = 706-2) 0.2 % GRAN MAT x10^3(ANC) (test code = 5176276514) 5.86 10*3/uL 1.88-7.09 IMM GRAN x10^3 (test code = 3627494824) 0.04 10*3/uL 0.00-0.06 LYMPH x10^3 (test code = 731-0) 2.43 10*3/uL 1.32-3.29 MONO x10^3 (test code = 742-7) 0.90 10*3/uL 0.33-0.92 EOS x10^3 (test code = 711-2) 0.03 10*3/uL 0.03-0.39 BASO x10^3 (test code = 704-7) 0.01-0.07 Lab Interpretation (test code = 43534-4) Abnormal [facility] HospitalType and Screen - ONCE Hqdpztf2334-64-24 09:12:00* Test Item Value Reference Range Interpretation Comme nts ABO & RH (test code = 20) O POSITIVE IAT (test code = 1185) Negative [facility] HospitalPOCT Urinalysis w/o Specific Ahsplhz6442-53-43 19:59:00* Test Item Value Reference Range Interpretation Comme nts POCT PH U (test code = 3254) n/a 5-8 POCT U LEUK EST (test code = 3263) n/a Negative - Negative POCT U NIT (test code = 3262) n/a Negative - Negati ve POCT U PROT (test code = 3259) negative Negative - Negat vasquez POCT U GLU (test code = 3256) negative Negative - Negati ve POCT U KETONE (test code = 3258) n/a Negative - Neg ative POCT U BLD (test code = 3257) n/a Negative - Negati ve [facility] Urinalysis w/o Specific Fxgnolg9699-38-44 15:45:00* Test Item Value Reference Range Interpretation Comme nts POCT PH U (test code = 3254) n/a 5-8 POCT U LEUK EST (test code = 3263) n/a Negative - Negative POCT U NIT (test code = 3262) n/a Negative - Negati ve POCT U PROT (test code = 3259) negative Negative - Negat vasquez POCT U GLU (test code = 3256) negative Negative - Negati ve POCT U KETONE (test code = 3258) n/a Negative - Neg ative POCT U BLD (test code = 3257) n/a Negative - Negati ve [facility] HospitalSCANNED LAB [id number] 14:46:32Ordered by an unspecified provider.[facility] Urinalysis w/o Specific Pwrruvn5547-69-37 13:49:00* Test Item Value Reference Range Interpretation Comme nts POCT PH U (test code = 3254) n/a 5-8 POCT U LEUK EST (test code = 3263) n/a Negative - Negative POCT U NIT (test code = 3262) n/a Negative - Negati ve POCT U PROT (test code = 3259) negative Negative - Negat vasquez POCT U GLU (test code = 3256) negative Negative - Negati ve POCT U KETONE (test code = 3258) n/a Negative - Neg ative POCT U BLD (test code = 3257) n/a Negative - Negati ve [facility] Urinalysis w/o Specific Eidrrwc4931-04-57 16:50:00* Test Item Value Reference Range Interpretation Comme nts POCT PH U (test code = 3254) n/a 5-8 POCT U LEUK EST (test code = 3263) n/a Negative - Negative POCT U NIT (test code = 3262) n/a Negative - Negati ve POCT U PROT (test code = 3259) negative Negative - Negat vasquez POCT U GLU (test code = 3256) negative Negative - Negati ve POCT U KETONE (test code = 3258) n/a Negative - Neg ative POCT U BLD (test code = 3257) n/a Negative - Negati ve [facility]PONH Urinalysis w/o Specific Fhshwak2400-29-31 16:50:00* Test Item Value Reference Range Interpretation Comme nts POCT PH U (test code = 3254) n/a 5-8 POCT U LEUK EST (test code = 3263) n/a Negative - Negative POCT U NIT (test code = 3262) n/a Negative - Negati ve POCT U PROT (test code = 3259) negative Negative - Negat vasquez POCT U GLU (test code = 3256) negative Negative - Negati ve POCT U KETONE (test code = 3258) n/a Negative - Neg ative POCT U BLD (test code = 3257) n/a Negative - Negati ve [facility] Urinalysis w/o Specific Ybipypu0933-65-56 16:50:00* Test Item Value Reference Range Interpretation Comme nts POCT PH U (test code = 3254) n/a 5-8 POCT U LEUK EST (test code = 3263) n/a Negative - Negative POCT U NIT (test code = 3262) n/a Negative - Negati ve POCT U PROT (test code = 3259) negative Negative - Negat vasquez POCT U GLU (test code = 3256) negative Negative - Negati ve POCT U KETONE (test code = 3258) n/a Negative - Neg ative POCT U BLD (test code = 3257) n/a Negative - Negati ve [facility] (INCLUDES DIFF/PLT)-[id number] 05:00:00* Test Item Value Reference Range Interpretation Comme nts WHITE BLOOD CELL COUNT-Q (test code = 6690-2) 5.8 3.8-10.8 RED BLOOD CELL COUNT-Q (test code = 789-8) 4.52 3.80-5.10 HEMOGLOBIN-Q (test code = 718-7) 11.9 g/dL 11.7-15.5 HEMATOCRIT-Q (test code = 4544-3) 36.9 % 35.0-45.0 MCV-Q (test code = 787-2) 81.6 fL 80.0-100.0 MCH-Q (test code = 785-6) 26.3 pg 27.0-33.0 L MCHC-Q (test code = 786-4) 32.2 g/dL 32.0-36.0 RDW-Q (test code = 788-0) 12.5 % 11.0-15.0 PLATELET COUNT-Q (test code = 777-3) 322 140-400 MPV-Q (test code = 776-5) 10.6 fL 7.5-12.5 ABSOLUTE NEUTROPHILS-Q (test code = 751-8) 4112 5046-4554 ABSOLUTE LYMPHOCYTES-Q (test code = 731-0) 953 199-5849 ABSOLUTE MONOCYTES-Q (test code = 742-7) 650 200-950 ABSOLUTE EOSINOPHILS-Q (test code = 711-2) 0 15-500 L ABSOLUTE BASOPHILS-Q (test code = 704-7) 41 0-200 NEUTROPHILS-Q (test code = 770-8) 70.9 % LYMPHOCYTES-Q (test code = 736-9) 17.2 % MONOCYTES-Q (test code = 5905-5) 11.2 % EOSINOPHILS-Q (test code = 713-8) 0.0 % BASOPHILS-Q (test code = 706-2) 0.7 % SEGUNDO (test code = SEGUNDO) PERFORMED BY [employer] [place]; [address] [place] [address]; AUBREY CAMARILLO MD,PHD. Lab Interpretation (test code = 15846-9) Abnormal [facility] Urinalysis w/o Specific Iqcmfbu5973-53-31 16:16:00* Test Item Value Reference Range Interpretation Comme nts POCT PH U (test code = 3254) n/a 5-8 POCT U LEUK EST (test code = 3263) n/a Negative - N egative POCT U NIT (test code = 3262) n/a Negative - Negati ve POCT U PROT (test code = 3259) neg Negative - Negat vasquez POCT U GLU (test code = 3256) neg Negative - Negati ve POCT U KETONE (test code = 3258) n/a Negative - Neg ative POCT U BLD (test code = 3257) n/a Negative - Negati ve [facility]POCT Nqqr9841-01-86 16:16:00* Test Item Value Reference Range Interpretation Comme nts POCT PREG (test code = 1605) Positive On board controls acceptable with C Line (test code = 3574) Yes POCT PREG LOT # (test code = 3575) POCT PREG TEST DATE ( test code = 3576) [facility]CB with Clyxdsirbflm1807-21-47 10:10:08* Test Item Value Reference Range Interpretation Comme nts WBC (test code = 6690-2) 11.64 See_Comment H [Automated messa ge] The system which generated this result transmitted reference range: 4.30 - 11.10 10*3/?L. The reference range was not used to interpret this result as normal/abnormal. RBC (test code = 789-8) 4.01 See_Comment [Automated messa ge] The system which generated this result transmitted reference range: 3.93 - 5.25 10*6/?L. The reference range was not used to interpret this result as normal/abnormal. HGB (test code = 718-7) 10.6 g/dL 11.6-15.0 L HCT (test code = 4544-3) 32.6 % 35.7-45.2 L MCV (test code = 787-2) 81.3 fL 80.6-95.5 MCH (test code = 785-6) 26.4 pg 25.9-32.8 MCHC (test code = 786-4) 32.5 g/dL 31.6-35.1 RDW-SD (test code = 98285-7) 47.0 fL 39.0-49.9 RDW-CV (test code = 788-0) 16.1 % 12.0-15.5 H PLT (test code = 777-3) 287 See_Comment [Automated [employer]] The system which generated this result transmitted reference range: 166 - 358 10*3/?L. The reference range was not used to interpret this result as normal/abnormal. MPV (test code = 28447-3) 10.3 fL 9.5-12.9 NRBC/100 WBC (test code = 0291426307) 0.0 See_Comment [Automated [employer] ssage] The system which generated this result transmitted reference range: 0.0 - 10.0 /100 WBCs. The reference range was not used to interpret this result as normal/abnormal. NRBC x10^3 (test code = 7517634422) See_Comment [Automated [employer]] The system which generated this result transmitted reference range: 10*3/?L. The reference range was not used to interpret this result as normal/abnormal. GRAN MAT (NEUT) % (test code = 770-8) 59.7 % IMM GRAN % (test code = 4868031795) 0.40 % LYMPH % (test code = 736-9) 29.1 % MONO % (test code = 5905-5) 9.3 % EOS % (test code = 713-8) 0.9 % BASO % (test code = 706-2) 0.6 % GRAN MAT x10^3(ANC) (test code = 7821795894) 6.95 10*3/uL 1.88-7.09 IMM GRAN x10^3 (test code = 9178203776) 0.05 10*3/uL 0.00-0.06 LYMPH x10^3 (test code = 731-0) 3.39 10*3/uL 1.32-3.29 H MONO x10^3 (test code = 742-7) 1.08 10*3/uL 0.33-0.92 H EOS x10^3 (test code = 711-2) 0.10 10*3/uL 0.03-0.39 BASO x10^3 (test code = 704-7) 0.07 10*3/uL 0.01-0.07 Lab Interpretation (test code = 54805-2) Abnormal [facility] OR SILVIA ONLY - [id number] 06:38:33* Test Item Value Reference Range Interpretation Comme nts RPR (Qualitative) (test code = 05428-8) Nonreactive Nonreactive Lab Interpretation (test cod e = 14312-0) Normal [facility] (D) IMMUNE DFVXDTOE7530-28-70 22:45:48* Test Item Value Reference Range Interpretation Comme nts RHIG CANDIDATE? (test code = 5188) No- see comment Patient is not a candidate for RhIg- Patient is Rh Positive.Performed at [facility] Laboratory Services - [facility] Blood [address] [place] [phone] Free: [phone] No. [id number] [facility] HospitalHepatitis B Surface Gpymjso5892-84-31 16:52:27 * Test Item Value Reference Range Interpretation Comme nts HBsAg Semi-Quantitative (roosevelt t code = 5195-3) 0.07 Negative [facility] HospitalHIV 1/2 AG-AB WITH IAIOTX8795-72-47 11:53:11* Test Item Value Reference Range Interpretation Comme nts HIV Semi-quantitative (test code = 01614-3) 0.25 Negative SEGUNDO (test code = SEGUNDO) Non-reactive for HIV-1 antigen and HIV-1/HIV-2 antibodies. ?No laboratory evidence of HIV infection. ?Repeat in 2-4 weeks if acute HIV infection is suspected. [facility] HospitalCB with Lmaoxuqfiwkj6090-55-75 09:02:16* Test Item Value Reference Range Interpretation Comme nts WBC (test code = 6690-2) 10.57 See_Comment [Automated [employer]] The system which generated this result transmitted reference range: 4.30 - 11.10 10*3/?L. The reference range was not used to interpret this result as normal/abnormal. RBC (test code = 789-8) 3.97 See_Comment [Automated [employer]] The system which generated this result transmitted reference range: 3.93 - 5.25 10*6/?L. The reference range was not used to interpret this result as normal/abnormal. HGB (test code = 718-7) 10.7 g/dL 11.6-15.0 L HCT (test code = 4544-3) 32.3 % 35.7-45.2 L MCV (test code = 787-2) 81.4 fL 80.6-95.5 MCH (test code = 785-6) 27.0 pg 25.9-32.8 MCHC (test code = 786-4) 33.1 g/dL 31.6-35.1 RDW-SD (test code = 48292-4) 46.5 fL 39.0-49.9 RDW-CV (test code = 788-0) 15.9 % 12.0-15.5 H PLT (test code = 777-3) 314 See_Comment [Automated [employer]] The system which generated this result transmitted reference range: 166 - 358 10*3/?L. The reference range was not used to interpret this result as normal/abnormal. MPV (test code = 71741-8) 10.5 fL 9.5-12.9 NRBC/100 WBC (test code = 9982566036) 0.0 See_Comment [Automated [employer] ssage] The system which generated this result transmitted reference range: 0.0 - 10.0 /100 WBCs. The reference range was not used to interpret this result as normal/abnormal. NRBC x10^3 (test code = 5921766301) See_Comment [Automated [employer]] The system which generated this result transmitted reference range: 10*3/?L. The reference range was not used to interpret this result as normal/abnormal. GRAN MAT (NEUT) % (test code = 770-8) 67.5 % IMM GRAN % (test code = 3507739643) 0.40 % LYMPH % (test code = 736-9) 21.8 % MONO % (test code = 5905-5) 9.6 % EOS % (test code = 713-8) 0.3 % BASO % (test code = 706-2) 0.4 % GRAN MAT x10^3(ANC) (test code = 6870345742) 7.14 10*3/uL 1.88-7.09 H IMM GRAN x10^3 (test code = 7247880504) 0.04 10*3/uL 0.00-0.06 LYMPH x10^3 (test code = 731-0) 2.30 10*3/uL 1.32-3.29 MONO x10^3 (test code = 742-7) 1.02 10*3/uL 0.33-0.92 H EOS x10^3 (test code = 711-2) 0.03 10*3/uL 0.03-0.39 BASO x10^3 (test code = 704-7) 0.04 10*3/uL 0.01-0.07 Lab Interpretation (test code = 38586-6) [facility] [id number] 08:52:00 * Test Item Value Reference Range Interpretation Comme nts ABO & RH (test code = 20) O Positive IAT (test code = 1185) Negative [facility]/O SPECIFIC [id number] 15:17:00* Test Item Value Reference Range Interpretation Comme nts POCT PH U (test code = 3254) n/a 5-8 POCT U LEUK EST (test code = 3263) n/a Negative - Negative POCT U NIT (test code = 3262) n/a Negative - Negati ve POCT U PROT (test code = 3259) negative Negative - Negat vasquez POCT U GLU (test code = 3256) negative Negative - Negati ve POCT U KETONE (test code = 3258) n/a Negative - Neg ative POCT U BLD (test code = 3257) n/a Negative - Negati ve [facility]CBC WITH [id number] 16:02:09* Test Item Value Reference Range Interpretation Comme nts WBC (test code = 6690-2) 10.19 See_Comment [Automated messa ge] The system which generated this result transmitted reference range: 4.30 - 11.10 10*3/?L. The reference range was not used to interpret this result as normal/abnormal. RBC (test code = 789-8) 4.11 See_Comment [Automated messa ge] The system which generated this result transmitted reference range: 3.93 - 5.25 10*6/?L. The reference range was not used to interpret this result as normal/abnormal. HGB (test code = 718-7) 10.8 g/dL 11.6-15.0 L HCT (test code = 4544-3) 33.3 % 35.7-45.2 L MCV (test code = 787-2) 81.0 fL 80.6-95.5 MCH (test code = 785-6) 26.3 pg 25.9-32.8 MCHC (test code = 786-4) 32.4 g/dL 31.6-35.1 RDW-SD (test code = 91437-9) 40.9 fL 39.0-49.9 RDW-CV (test code = 788-0) 14.2 % 12.0-15.5 PLT (test code = 777-3) 337 See_Comment [Automated [employer]] The system which generated this result transmitted reference range: 166 - 358 10*3/?L. The reference range was not used to interpret this result as normal/abnormal. MPV (test code = 45788-4) 9.4 fL 9.5-12.9 L NRBC/100 WBC (test code = 8154738318) 0.0 See_Comment [Automated [employer]] The system which generated this result transmitted reference range: 0.0 - 10.0 /100 WBCs. The reference range was not used to interpret this result as normal/abnormal. NRBC x10^3 (test code = 8455877401) See_Comment [Automated [employer]] The system which generated this result transmitted reference range: 10*3/?L. The reference range was not used to interpret this result as normal/abnormal. GRAN MAT (NEUT) % (test code = 770-8) 73.0 % IMM GRAN % (test code = 4956374109) 0.50 % LYMPH % (test code = 736-9) 17.3 % MONO % (test code = 5905-5) 8.5 % EOS % (test code = 713-8) 0.2 % BASO % (test code = 706-2) 0.5 % GRAN MAT x10^3(ANC) (test code = 2759931647) 7.44 10*3/uL 1.88-7.09 H IMM GRAN x10^3 (test code = 5822874079) 0.05 10*3/uL 0.00-0.06 LYMPH x10^3 (test code = 731-0) 1.76 10*3/uL 1.32-3.29 MONO x10^3 (test code = 742-7) 0.87 10*3/uL 0.33-0.92 EOS x10^3 (test code = 711-2) 0.03-0.39 L BASO x10^3 (test code = 704-7) 0.05 10*3/uL 0.01-0.07 Lab Interpretation (test code = 61805-1) [facility] [id number] 15:48:00 * Test Item Value Reference Range Interpretation Comme nts ABO & RH (test code = 20) O Positive IAT (test code = 1185) Negative [facility] SPECIFIC [id number] 17:43:00* Test Item Value Reference Range Interpretation Comme nts POCT PH U (test code = 3254) n/a 5-8 POCT U LEUK EST (test code = 3263) n/a Negative - Negative POCT U NIT (test code = 3262) n/a Negative - Negati ve POCT U PROT (test code = 3259) negative Negative - Negat vasquez POCT U GLU (test code = 3256) negative Negative - Negati ve POCT U KETONE (test code = 3258) n/a Negative - Neg ative POCT U BLD (test code = 3257) n/a Negative - Negati ve [facility] URINALYSIS W/O SPECIFIC [id number] 20:01:00* Test Item Value Reference Range Interpretation Comme nts POCT PH U (test code = 3254) N/A 5-8 POCT U LEUK EST (test code = 3263) N/A Negative - Negative POCT U NIT (test code = 3262) N/A Negative - Negati ve POCT U PROT (test code = 3259) Negative Negative - Negat vasquez POCT U GLU (test code = 3256) Negative Negative - Negati ve POCT U KETONE (test code = 3258) N/A Negative - Neg ative POCT U BLD (test code = 3257) N/A Negative - Negati ve [facility] History and Physical Notes Date/Time Note Provider Source 2024-07-09 18:58:00 ANTEPARTUM HISTORY & PHYSICAL IDENTIFYING DATA Vito Levine is 24 year old, /White, 34w4d, female with AILYN 08/16/2024, by Ultrasound. : 2000 [facility] Care [facility] 1 CHIEF COMPLAINT pressure HISTORY OF PRESENT ILLNESS 24 year old @34w4d presents in active labor. Seen in office was 5 cm. Denies painful contractions or vb/LOF. + presssure PAST OBSTETRIC HISTORY OB History Para Term AB Living 4 3 3 3 SAB IAB Ectopic Multiple Live Births 0 3 # Outcome Date GA Lbr Usama/2nd Weight Sex Delivery Anes PTL Lv 4 Current 3 Term 09/15/23 39w2d 2637 g F NORMAL SPONT EPI N ABDELRAHMAN 2 Term 07/06/22 3005 g F NORMAL SPONT ABDELRAHMAN 1 Term 11/20/17 3204 g M NORMAL SPONT ABDELRAHMAN PAST MEDICAL HISTORY Problem list: Patient Active Problem List Diagnosis Date Noted 34 weeks gestation of 07/09/2024 Obesity (BMI 30-39.9) 06/11/2024 uterine contractions 06/11/2024 Anemia of mother in , antepartum 08/14/2023 Short interval between pregnancies affecting in third trimester, antepartum 07/31/2023 High-risk in third trimester 07/31/2023 Operations: No past surgical history on file. Prior surgeries at outside hospitals: none No past medical history on file. CURRENT HEALTH STATUS Medications: No current facility-administered medications for this encounter. Allergies and drug reactions: Patient has no known allergies. HOME MEDICATIONS Medications Prior to Admission Medication Sig Dispense Refill Last Dose ondansetron 4 mg disintegrating tablet Take 1 tablet by mouth every 8 (eight) hours as needed for Nausea and Vomiting (N/V). 20 tablet 1 Taking vitamin w/FA tablet Take 1 tablet by mouth in the morning. 100 tablet 3 Taking doxylamine-pyridoxine, vit B6, 10-10 mg per tablet Take 2 tablets by mouth at bedtime. Not Taking TRINATAL RX 1 60 mg iron-1 mg tablet Take 1 tablet by mouth every morning. Taking docusate 100 mg capsule Take 2 capsules by mouth once daily as needed for Constipation. 60 capsule 1 Not Taking ferrous sulfate 325 mg (65 mg iron) tablet Take 1 tablet by mouth in the morning and 1 tablet in the evening. 60 tablet 2 Not Taking Last taken: none SOCIAL HISTORY Tobacco History: Social History Tobacco Use Smoking Status Never Smokeless Tobacco Never Drug History: Social History Substance and Sexual Activity Drug Use Never Alcohol History: Social History Substance and Sexual Activity Alcohol Use Not Currently FAMILY HISTORY Family History Problem Relation Age of Onset Hypertension Mother No Significant Medical Problems Father Hypertension Maternal Grandmother REVIEW OF SYSTEMS General: negative Constitutional: negative Eyes: negative ENT/Mouth: negative Cardiovascular: negative Respiratory: negative Gastrointestinal:negative Genitourinary: Pressure Musculoskeletal: negative Skin/breast: negative Neurological: negative Psychiatric: negative Endocrine: negative Hemat/Lymph: negative Allergic/Immuno:none VITAL SIGNS BP: (117)/(69) Temp: [35.9 ?C (96.7 ?F)] Temp source: -- Pulse: [101] Resp: -- SpO2: -- Height: [160 cm (5' 3")] Weight: [74.8 kg (165 lb)] BMI (calculated): [29.23] PHYSICAL EXAMINATIONS General: well-developed, well-nourished Lungs: clear to auscultation bilaterally Abdomen: tenderness - normal : OB pelvic exam performed? Yes. Dilation - 7 cm Effacement - 90% % Station - -3 Presentation (fetus 1) - vertex Extremities: no clubbing, cyanosis, or edema Neuro: cranial nerves II through XII grossly intact; sensation grossly intact; muscle strength 5 out of 5 in all four extremities REVIEW OF LABORATORY, PATHOLOGY, AND RADIOLOGY DATA Lab results: CBC BMP PT/INR WHITE BLOOD CELL COUNT-Q (Thousand/uL) Date Value 12/25/2023 5.8 WBC (10*3/?L) Date Value 06/11/2024 9.28 No results found for: "NA" No results found for: "PT" RED BLOOD CELL COUNT-Q (Million/uL) Date Value 12/25/2023 4.52 RBC (10*6/?L) Date Value 06/11/2024 3.35 (L) No results found for: "K" No results found for: "PTINR" PLATELET COUNT-Q (Thousand/uL) Date Value 12/25/2023 322 PLT (10*3/?L) Date Value 06/11/2024 290 No results found for: "CA" HGB (g/dL) Date Value 06/11/2024 9.3 (L) HEMOGLOBIN-Q (g/dL) Date Value 12/25/2023 11.9 No results found for: "CL" aPTT HCT (%) Date Value 06/11/2024 27.7 (L) HEMATOCRIT-Q (%) Date Value 12/25/2023 36.9 No results found for: "BUN" No results found for: "APTTPAT" No results found for: "CREAT" No results found for: "GLU" No results found for: "TCO2" Type & Screen Rubella Varicella ABO & RH (no units) Date Value 06/11/2024 O POSITIVE Rubella screen IgG (no units) Date Value 2024 Positive No results found for: "VZVG" No results found for: "TSABINT" Hep B HIV Syphilis No results found for: "HBS" No results found for: "HIV" No results found for: "SYPG" Group B Strep Chlamydia No results found for: "CGBS" C. trachomatis Nucleic Acid (no units) Date Value 06/11/2024 Negative X-ray results: none Placenta Accreta Screening Screening outcome: A positive screening outcome indicates a history of prior delivery or prior uterine surgery, AND the presence of either a placenta low lying/previa or ultrasound suspicion of PASD in the current . Negative screening. DELIVERY PLAN Vaginal HEART RATE 150 cat 1 Lyman: 3-4 ctx/10 min ASSESSMENT AND PLAN 24 year old @34w4d presents in active labor Admit Epidural as desired Peds notified Anticipate vaginal delivery Ashli Galvan MD [facility] 2024-06-11 07:56:49 TRIAGE/L&D HISTORY & PHYSICAL IDENTIFYING DATA Vito Levine is 24 year old, /White, 30w4d, female with AILYN 08/16/2024, by Ultrasound. : 2000 Primary Care Physician: Ashli Galvan CHIEF COMPLAINT Transfer of care for PTL HISTORY OF PRESENT ILLNESS Vito Levine is a 24 year old at 30w4d who presents as a transfer of care for PTL. The patient went to [place] for contractions and was 4/50/-3. She has not history of delivery. She was given BMZ at 0500 and started on magnesium, then sent to [facility] for higher level of care. Patient denies vaginal bleeding or leakage of fluid. Patient denies headache, denies nausea/vomiting, denies RUQ pain, denies visual abnormalities. Endorses normal movement. PAST OBSTETRIC HISTORY OB History Para Term AB Living 4 3 3 3 SAB IAB Ectopic Multiple Live Births 0 3 # Outcome Date GA Lbr Usama/2nd Weight Sex Delivery Anes PTL Lv 4 Current 3 Term 09/15/23 39w2d 2637 g F NORMAL SPONT EPI N ABDELRAHMAN 2 Term 07/06/22 3005 g F NORMAL SPONT ABDELRAHMAN 1 Term 11/20/17 3204 g M NORMAL SPONT ABDELRAHMAN PAST MEDICAL HISTORY Problem list: Patient Active Problem List Diagnosis Date Noted Obesity (BMI 30-39.9) 06/11/2024 uterine contractions in third trimester, antepartum 06/11/2024 Normal labor 09/15/2023 Liveborn infant, of horn , born in hospital by vaginal delivery 09/15/2023 Anemia of mother in , antepartum 08/14/2023 Short interval between pregnancies affecting in third trimester, antepartum 07/31/2023 30 weeks gestation of 07/31/2023 High-risk in second trimester 07/31/2023 Operations: No past surgical history on file. No past medical history on file. CURRENT HEALTH STATUS Medications: Current Facility-Administered Medications Medication Dose Route Frequency Last Rate Last Admin betamethasone acet,sod phos (CELESTONE SOLUSPAN) 6 mg/mL injection 12 mg 12 mg Intramuscular Q24H 12 mg at 06/11/24 0510 D5W-LR IV infusion 1,000 mL 1,000 mL IV Infusion CONTINUOUS 75 mL/hr at 06/11/24 0508 1,000 mL at 06/11/24 0508 magnesium sulfate loading dose from bag 6 g IV Infusion ONCE And magnesium sulfate in water for injection 20 gram/500 mL (4 %) IV infusion 2 g/hr IV Infusion CONTINUOUS 50 mL/hr at 06/11/24 0508 2 g/hr at 06/11/24 0508 Allergies and drug reactions: Patient has no known allergies. HOME MEDICATIONS Medications Prior to Admission Medication Sig Dispense Refill Last Dose ondansetron 4 mg disintegrating tablet Take 1 tablet by mouth every 8 (eight) hours as needed for Nausea and Vomiting (N/V). 20 tablet 1 vitamin w/FA tablet Take 1 tablet by mouth in the morning. 100 tablet 3 doxylamine-pyridoxine, vit B6, 10-10 mg per tablet Take 2 tablets by mouth at bedtime. TRINATAL RX 1 60 mg iron-1 mg tablet Take 1 tablet by mouth every morning. docusate 100 mg capsule Take 2 capsules by mouth once daily as needed for Constipation. 60 capsule 1 Not Taking ferrous sulfate 325 mg (65 mg iron) tablet Take 1 tablet by mouth in the morning and 1 tablet in the evening. 60 tablet 2 Not Taking SOCIAL HISTORY Tobacco History: Social History Tobacco Use Smoking Status Never Smokeless Tobacco Never Drug History: Social History Substance and Sexual Activity Drug Use Never Alcohol History: Social History Substance and Sexual Activity Alcohol Use Not Currently FAMILY HISTORY Family History Problem Relation Age of Onset Hypertension Mother No Significant Medical Problems Father Hypertension Maternal Grandmother REVIEW OF SYSTEMS General: negative Skin: negative HEENT: negative Neck: negative HEME: negative Resp: negative Cardio: negative GI: negative : negative Endo: negative Neuro: negative Back: negative RICK: negative Psych: negative VITAL SIGNS BP: (115-125)/(63-85) Temp: [36.7 ?C (98 ?F)-37.1 ?C (98.8 ?F)] Temp source: Oral (06/11 0615) Pulse: [88-96] Resp: [16-18] SpO2: [98 %-100 %] Height: [160 cm (5' 3")] Weight: [80.2 kg (176 lb 12.8 oz)] BMI (calculated): [31.32] PHYSICAL EXAMINATIONS General: patient alert and in no acute distress HEENT: symmetric, negative for masses Lungs: unlabored breathing Breast: deferred Cardiology: peripheral pulses intact and regular Abdomen: soft, non-tender, non-distended, no liver, spleen or abnormal masses palpated and Gravid Extremities: no clubbing, cyanosis, or edema Neuro: patient moving all extremities, no facial droop : SVE /-3 REVIEW OF LABORATORY, PATHOLOGY, AND RADIOLOGY DATA Lab results: Type & Screen Lab Results Component Value Date/Time IABORH O POSITIVE 06/11/2024 03:33 AM IAT Negative 06/11/2024 03:33 AM Serologies Lab Results Component Value Date/Time VZVIGG Positive 2024 10:44 AM RUBG Positive 2024 10:44 AM HBSAG Negative 2024 10:44 AM HBSAG 0.06 2024 10:44 AM Chlamydia Lab Results Component Value Date/Time VCAA Negative 12/19/2023 10:22 AM Group B Strep Lab Results Component Value Date/Time CGB Negative 09/04/2023 10:21 AM GTT Lab Results Component Value Date/Time [id number] 79 (L) 05/15/2024 02:20 PM CBC Lab Results Component Value Date/Time HGB 9.3 (L) 06/11/2024 03:33 AM HGB 11.9 12/25/2023 03:00 PM HCT 27.7 (L) 06/11/2024 03:33 AM HCT 36.9 12/25/2023 03:00 PM PLT 290 06/11/2024 03:33 AM PLT 322 12/25/2023 03:00 PM Active Hospital Problems Diagnosis Date Noted Obesity (BMI 30-39.9) 06/11/2024 uterine contractions in third trimester, antepartum 06/11/2024 Anemia of mother in , antepartum 08/14/2023 30 weeks gestation of 07/31/2023 Short interval between pregnancies affecting in third trimester, antepartum 07/31/2023 Resolved Hospital Problems No resolved problems to display. Present on Admission: Obesity (BMI 30-39.9) uterine contractions in third trimester, antepartum 30 weeks gestation of Anemia of mother in , antepartum Short interval between pregnancies affecting in third trimester, antepartum Placenta Accreta Screening Prior ? : No Prior Uterine Surgery?: No Placenta low lying/previa in current ? : No Screening outcome: A positive screening outcome indicates a history of prior delivery or prior uterine surgery, AND the presence of either a placenta low lying/previa or ultrasound suspicion of PASD in the current . Negative screening. ASSESSMENT AND PLAN Vito Levine is a 24 year old at 30w4d by u(6) who presents as a transfer for labor. contractions - Patient seen in [place] for contractions and was found to be 4/50/-3 on SVE - Patient given BMZ#1 at 0510 and started on magnesium for neuroprotection and sent to [facility] for higher level of care - No hx of delivery - Wet mount negative in [place] - PTL labs sent in [place]: GC/CT, UCx, GBS - On recheck, patient 4/50/-3 - Peds consult placed Plan: Admission to for continued monitoring. Patient is unchanged but still reports contractions that are painful and has had intermittent contractions on the monitor. BMZ#2 to be given at 0500 on 06/12. Will continue magnesium for neuroprotection. Antepartum course reviewed - 1 h 79, sero negative, Rimmune, VZVimmune, HPV (11/27), O positive/IAT negative, GBS pending, Pap NILM 12/19/23 - H/H, plt: 9.3 / 27.7, 290 on 06/11/24 - Pvt Dr. Galvan Fetus - Presentation on admission: cephalic - anterior placenta - EFW: 2093 g, 97%tile, AC>99%tile - FHT reactive and reassuring - Normal anatomy scan D/w Dr. Crawford. Vinay Delgado MD Associated attestation - Guera Crawford MD - 06/12/2024 1:32 PM CDT I personally examined the patient on 06/11/[address] Delgado's resident note as written. I actively participated in the decision-making process. Please see the resident's note for additional details. OG-OBSTETRICS & GYNECOLOGY [facility] 2024-06-11 04:36:12 TRIAGE HISTORY & PHYSICAL IDENTIFYING DATA Vito Levine is 24 year old, /White, 30w4d, female with AILYN 08/16/2024, by Ultrasound. : 2000 Primary Care Physician: Ashli Galvan CHIEF COMPLAINT Back and lower abdomen pain HISTORY OF PRESENT ILLNESS Vito Levine is a 24 year old female presents with c/o lower back pain radiating to the front since Saturday and increasingly got worst last night She was found to be klaudia on the monitor and 4cm dilated by the RN examination +FM. No VB, LOF. No pre-eclampsia sx or other complaints. complicated by insufficient care and short interpregnancy interval CARE: OB: Dr Galvan See OB Summary for PNC details PAST OBSTETRIC HISTORY OB History Para Term AB Living 4 3 3 3 SAB IAB Ectopic Multiple Live Births 0 3 # Outcome Date GA Lbr Usama/2nd Weight Sex Delivery Anes PTL Lv 4 Current 3 Term 09/15/23 39w2d 2637 g F NORMAL SPONT EPI N ABDELRAHMAN 2 Term 07/06/22 3005 g F NORMAL SPONT ABDELRAHMAN 1 Term 11/20/17 3204 g M NORMAL SPONT ABDELRAHMAN PAST MEDICAL HISTORY Problem list: Patient Active Problem List Diagnosis Date Noted Obesity (BMI 30-39.9) 06/11/2024 uterine contractions in third trimester, antepartum 06/11/2024 Normal labor 09/15/2023 Liveborn , of horn , born in hospital by vaginal delivery 09/15/2023 Anemia of mother in , antepartum 08/14/2023 Short interval between pregnancies affecting in third trimester, antepartum 07/31/2023 30 weeks gestation of 07/31/2023 High-risk in second trimester 07/31/2023 Operations: No past surgical history on file. No past medical history on file. CURRENT HEALTH STATUS Medications: Current Facility-Administered Medications Medication Dose Route Frequency Last Rate Last Admin betamethasone acet,sod phos (CELESTONE SOLUSPAN) 6 mg/mL injection 12 mg 12 mg Intramuscular Q24H 12 mg at 06/11/24 0510 D5W-LR IV infusion 1,000 mL 1,000 mL IV Infusion CONTINUOUS 75 mL/hr at 06/11/24 0508 1,000 mL at 06/11/24 0508 magnesium sulfate loading dose from bag 6 g IV Infusion ONCE And magnesium sulfate in water for injection 20 gram/500 mL (4 %) IV infusion 2 g/hr IV Infusion CONTINUOUS 50 mL/hr at 06/11/24 0508 2 g/hr at 06/11/24 0508 Allergies and drug reactions: Patient has no known allergies. HOME MEDICATIONS Medications Prior to Admission Medication Sig Dispense Refill Last Dose ondansetron 4 mg disintegrating tablet Take 1 tablet by mouth every 8 (eight) hours as needed for Nausea and Vomiting (N/V). 20 tablet 1 vitamin w/FA tablet Take 1 tablet by mouth in the morning. 100 tablet 3 doxylamine-pyridoxine, vit B6, 10-10 mg per tablet Take 2 tablets by mouth at bedtime. TRINATAL RX 1 60 mg iron-1 mg tablet Take 1 tablet by mouth every morning. docusate 100 mg capsule Take 2 capsules by mouth once daily as needed for Constipation. 60 capsule 1 Not Taking ferrous sulfate 325 mg (65 mg iron) tablet Take 1 tablet by mouth in the morning and 1 tablet in the evening. 60 tablet 2 Not Taking SOCIAL HISTORY Tobacco History: Social History Tobacco Use Smoking Status Never Smokeless Tobacco Never Drug History: Social History Substance and Sexual Activity Drug Use Never Alcohol History: Social History Substance and Sexual Activity Alcohol Use Not Currently FAMILY HISTORY Family History Problem Relation Age of Onset Hypertension Mother No Significant Medical Problems Father Hypertension Maternal Grandmother REVIEW OF SYSTEMS General: negative Constitutional: negative Eyes: negative ENT/Mouth: negative Cardiovascular: negative Respiratory: negative Gastrointestinal:negative Genitourinary: As above Musculoskeletal: negative Skin/breast: negative Neurological: negative Psychiatric: negative Endocrine: negative Hemat/Lymph: negative Allergic/Immuno:none VITAL SIGNS BP: (115-125)/(63-85) Temp: [36.7 ?C (98.1 ?F)-37.1 ?C (98.8 ?F)] Temp source: Oral (06/11 0256) Pulse: [88-96] Resp: [16-18] SpO2: [98 %-100 %] Height: [160 cm (5' 3")] Weight: [80.2 kg (176 lb 12.8 oz)] BMI (calculated): [31.32] PHYSICAL EXAMINATIONS Gen: alert and oriented, well appearing, no distress CV: RRR Resp: normal work of breathing Abd: gravid, soft, NTTP Ext: no calf tenderness or edema : 3-4/50/-3, intact membrane Contractions: q2-4mins - SVE: Dilation: 4 / Effacement (%): 50 % / Station: -3 REVIEW OF LABORATORY, PATHOLOGY, AND RADIOLOGY DATA Lab results: Type & Screen HIV Hep B Syphilis Chlamydia ABO & RH Date Value Ref Range Status 06/11/2024 O POSITIVE Final No results found for: "HIVMULTIPLEX" No components found for: "HBSHBSAG" No results found for: "SYPIGG" C. trachomatis Nucleic Acid Date Value Ref Range Status 12/19/2023 Negative Negative Final IAT Date Value Ref Range Status 06/11/2024 Negative Final Varicella Rubella Glucose Group B Strep CBC VZV IgG antibody Date Value Ref Range Status 2024 Positive Negative Final Rubella screen IgG Date Value Ref Range Status 2024 Positive Negative Final GLUC 1 HR Date Value Ref Range Status 05/15/2024 79 (L) 120 - 170 mg/dL Final No results found for: "CGBS" HGB Date Value Ref Range Status 06/11/2024 9.3 (L) 11.6 - 15.0 g/dL Final HCT Date Value Ref Range Status 06/11/2024 27.7 (L) 35.7 - 45.2 % Final PLT Date Value Ref Range Status 06/11/2024 290 166 - 358 10*3/?L Final Placenta Accreta Screening Prior ? : No Prior Uterine Surgery?: No Placenta low lying/previa in current ? : No Screening outcome: A positive screening outcome indicates a history of prior delivery or prior uterine surgery, AND the presence of either a placenta low lying/previa or ultrasound suspicion of PASD in the current . Negative screening. Active Hospital Problems Diagnosis Date Noted Obesity (BMI 30-39.9) 06/11/2024 uterine contractions in third trimester, antepartum 06/11/2024 Anemia of mother in , antepartum 08/14/2023 30 weeks gestation of 07/31/2023 Short interval between pregnancies affecting in third trimester, antepartum 07/31/2023 Resolved Hospital Problems No resolved problems to display. Present on Admission: Obesity (BMI 30-39.9) uterine contractions in third trimester, antepartum 30 weeks gestation of Anemia of mother in , antepartum Short interval between pregnancies affecting in third trimester, antepartum ASSESSMENT AND PLAN Vito Levine is a 24 year old at 30w4d who presents with contractions. contractions with cervical dilation - Painful contractions persists despite IVF bolus - Labs obtained. GBS collected - Wet prep - neg - Start BMZx - Given cervical change and multiparity, will transfer to [place] for higher level of care - Will start MgSO4 Fetus - Cephalic on BSUS - Reassuring strip Spoke to [facility] firmware software verification engineer, Dr Sawyer, who kindly accepted the transfer. Martha Lyles MD T [facility] Procedure Notes Date/Time Note Provider Source 2024-07-09 20:44:40 Associated Order(s): Central Neuraxial Block Central Neuraxial Block Date/Time: 07/09/2024 8:25 PM Performed by: Jaclyn Catherine MD Authorized by: Jaclyn Catherine MD Patient Location: OB End Time: 07/09/2024 8:40 PM Reason for Block: Labor analgesia, OB request and Patient request Staff: Anesthesiologist: Jaclyn Catherine MD Performed by: anesthesiologist Preanesthetic Checklist: timeout performed, risks and benefits explained, pre-op evaluation, patient identified, IV checked and anesthesia consent Procedure: Type of Neuraxial: Epidural and Continuous Sterility Prep cap, drape, gloves and hand hygiene Sedation Level no sedation Patient Position: sitting Prep: Betadine Monitoring: NIBP, heart rate, heart rate / toco and continuous pulse ox Location: lumbar (1-5) Lumbar: L4-L5 Approach: midline Technique: BENJAMIN saline Guidance with: landmark technique} Epidural/Spinal [place] and/or Catheter: Epidural/Spinal Kit: [place] Needle Gauge: 17 G Needle Length: 3.5 in (8.89 cm) Needle Insertion Depth: 5 Catheter Type: multiport Catheter Size: 19 G Catheter at Skin Depth: 10 Number of Attempts: 1 Test Dose: lidocaine 1.5% with epinephrine 1-to-200,000 and negative Dose: 5 cc Catheter Securement Method: clear occlusive dressing, liquid medical adhesive and surgical tape Assessment: Sensory Level: below T10 Block Outcome: anesthesia achieved, appropriate motor block, appropriate sensory block, no apparent complications, pain relieved, patient comfortable, patient satisfied, patient tolerated procedure well and positive pain relief Procedure Assessment: patient tolerated procedure well with no complications [facility] Notes Date/Time Note Provider Source 2024-08-21 08:19:28 Telephone encounter is being closed for EPIC maintenance purposes. Encounter has been open greater than 72 hours. If documentation is still needed, please create an addendum. Access Center Alida Frias RN Alida Frias RN [facility] 2024-07-12 13:41:58 Problem: Discharge Planning - Goal: Adequate for discharge 07/12/2024 1341 by Eva Nick RN Outcome: Adequate for discharge 07/12/2024 1128 by Eva Nick RN Outcome: Adequate for discharge Goal: Mood stable 07/12/2024 1341 by Eva Nick RN Outcome: Adequate for discharge 07/12/2024 1128 by Eva Nick RN Outcome: Adequate for discharge Problem: Breast-feeding - Ineffective Goal: Effective breast-feeding 07/12/2024 1341 by Eva Nick RN Outcome: Adequate for discharge 07/12/2024 1128 by Eva Nick RN Outcome: Adequate for discharge Problem: Falls, Risk of Goal: Absence of falls 07/12/2024 1341 by Eva Nick RN Outcome: Adequate for discharge 07/12/2024 1128 by Eva Nick RN Outcome: Adequate for discharge Problem: Bleeding, Risk of Goal: Absence of active bleeding 07/12/2024 1341 by Eva Nick RN Outcome: Adequate for discharge 07/12/2024 1128 by Eva Nick RN Outcome: Adequate for discharge Eva Nick RN [facility] 2024-07-12 11:28:37 Problem: Discharge Planning - Goal: Adequate for discharge Outcome: Adequate for discharge Goal: Mood stable Outcome: Adequate for discharge Problem: Breast-feeding - Ineffective Goal: Effective breast-feeding Outcome: Adequate for discharge Problem: Falls, Risk of Goal: Absence of falls Outcome: Adequate for discharge Problem: Bleeding, Risk of Goal: Absence of active bleeding Outcome: Adequate for discharge [facility] 2024-07-11 19:55:18 Problem: Discharge Planning - Goal: Adequate for discharge Outcome: Progressing as expected Goal: Mood stable Outcome: Progressing as expected Problem: Breast-feeding - Ineffective Goal: Effective breast-feeding Outcome: Progressing as expected Problem: Falls, Risk of Goal: Absence of falls Outcome: Progressing as expected Problem: Bleeding, Risk of Goal: Absence of active bleeding Outcome: Progressing as expected Chantelle Escalante RN [facility] 2024-07-11 08:12:02 Problem: Discharge Planning - Goal: Adequate for discharge 07/11/2024810 by Anny Barr RN Outcome: Progressing as expected 07/11/2024 0808 by Anny Barr RN Outcome: Progressing as expected Goal: Mood stable 07/11/2024 08 by Anny Barr RN Outcome: Progressing as expected 07/11/2024 0808 by Anny Barr RN Outcome: Progressing as expected Problem: Breast-feeding - Ineffective Goal: Effective breast-feeding 07/11/2024810 by Anny Barr RN Outcome: Progressing as expected 07/11/2024 0808 by Anny Barr RN Outcome: Progressing as expected Problem: Falls, Risk of Goal: Absence of falls 07/11/2024810 by Anny Barr RN Outcome: Progressing as expected 07/11/2024 0808 by Anny Barr RN Outcome: Progressing as expected Problem: Bleeding, Risk of Goal: Absence of active bleeding 07/11/2024 0811 by Anny Barr RN Outcome: Progressing as expected 07/11/2024 0808 by Anny Barr RN Outcome: Progressing as expected Anny Barr RN [facility] 2024-07-11 08:08:54 Problem: Discharge Planning - Goal: Adequate for discharge Outcome: Progressing as expected Goal: Mood stable Outcome: Progressing as expected Problem: Breast-feeding - Ineffective Goal: Effective breast-feeding Outcome: Progressing as expected Problem: Falls, Risk of Goal: Absence of falls Outcome: Progressing as expected Problem: Bleeding, Risk of Goal: Absence of active bleeding Outcome: Progressing as expected T [facility] 2024-07-10 19:58:56 Problem: Discharge Planning - Goal: Adequate for discharge Outcome: Progressing as expected Goal: Mood stable Outcome: Progressing as expected Problem: Breast-feeding - Ineffective Goal: Effective breast-feeding Outcome: Progressing as expected Problem: Falls, Risk of Goal: Absence of falls Outcome: Progressing as expected Problem: Bleeding, Risk of Goal: Absence of active bleeding Outcome: Progressing as expected [facility] 2024-07-10 12:05:00 Images from the original note were not included. This note was copied from a baby's chart. Evaluation Situation visit for mom with baby baby Background " " is 1 day old, born weighing 2540g. Gestational Age: 34w4d MATERNAL FEEDING INTENT FEEDING STATUS Formula supplementation via bottle MATERNAL STATUS Current milk volume: 0 mL/24 hrs Pump frequency: 8-12 times/24 hrs Type of pump using at hospital: Medela Symphony (hospital- grade)-- Pump for home use: Has at home Assessment & Recommendations PUMP OBSERVATION Mom instructed on assembly, usage and cleaning of Symphony breast pump. Pump observation done with 24 mm MILK STORAGE GUIDELINES SPECIAL CONCERNS FOR BABIES Respiratory Distress:Your baby may have respiratory distress. The baby will most likely receive IV fluids for energy needs and hydration. Then as the baby's respiratory status improves, the baby will transition to gavage (tube) feeding, , and bottle feeding as ordered by the NICU team. Sleepiness:Your baby may be sleepy and difficult to awaken for feedings. Feed whenever the baby seems hungry--at least 8 times in a twenty-four hour period or every 3 hours. Unable to maintain body temperature: Your baby may chill easily. [id number] holding is the best way to keep your baby warm and will also make it easy to breastfeed often. When not [id number], make sure that your baby is dressed warmly and away from drafts. Lack stamina and tire easily during a feeding: If your baby falls asleep during a feeding, change the diaper, change breasts or use other ways to keep your baby awake for a full feeding. Short frequent feedings usually work best. At risk for low blood sugar: Some babies have low blood sugars because they do not have as much body fat as a term baby. There are ways of correcting this depending on the situation with glucose gel, feedings, and IV dextrose. The nurses will be checking blood glucose levels regularly after to make sure it is normal. Infections: Your baby may have an underdeveloped immune system and be more susceptible to infections. Breastmilk provides immune factors and infection fighting factors to help protect your baby. TRIPLE FEEDING PLAN Feeding plan for infants 34 - 36.6 weeks gestation, weight less than or equal to 2500 grams, or weight loss greater than 10% Begin once the baby is allowed to breastfeed. Means that you do 3 things every time you feed your baby. 1. Breastfeed 2. Bottle-feed 3. Pump Breastfeed: Breastfeed whenever your baby is showing feeding cues, with a maximum of 3 hours in between each feed. If your baby has not eaten for 3 hours, you will need to wake your baby to eat. Recommend first for a maximum of 20 mins, then offering the bottle immediately after . Stop whenever the baby is no longer actively/vigorously sucking and is engaging in more non-nutritive sucking. Bottle-feed: After or if your baby won't latch, give expressed breastmilk or formula ad leonardo. Offer the bottle until your baby disengages from the feeding. If expressed breastmilk is available give it first for supplementation. If more volume is needed for supplementation, then make up the difference in needed volume with formula. Recommended volume of expressed breast milk or formula to give your baby: -First feedin - 10 mL at 2 hours of age -Day 1: 10 - 15 mL -Day 2: 15 - 25 mL -Day 3 and beyond: 20 - 35 mL or as per MD/PAINTER ORDNANCE order -Increase by 5 - 10 mL per feeding per day Pump: You will need to begin pumping within 6 hours of delivery. After each session, you need to hand express or pump for 15-20 minutes. This will ensure you produce an adequate milk supply for your baby. WEANING OFF TRIPLE FEEDING The goal is to keep the baby fed, both via and then topping the baby off with the bottle, while continually working on so that eventually the bottle-feeding and pumping steps can be stopped. Continue this triple feeding regimen and wean off supplementation as directed by your outpatient Radiology Transcriptionist. Generally, mom will slowly reduce the amount of volume she is topping the baby off with after a session until the top offs are not necessary. As the baby gains adequate weight on this regimen and improves his/her energy and efficiency at the breast over time, the bottle feeding can be gradually reduced while the length of lengthened. ASSISTANCE Encouraged mom to breastfeed every 3 hours. If baby is engaged and activley sucking, mom can breastfeed for up to 20 minutes. If the baby is sleepy and not activley sucking then limit to 10 minutes, so she won't get too tired. Then follow up with a bottle of EBM or formula. As gains adequate weight on this regimen and improves her energy and efficiency at the breast over time, the bottle feeding can be gradually reduced while the length of lengthened. Assessment (most recent) Assessment - 07/10/24 1050 General Information Visit Initial Mom's age (years) 25 years Gestational age 34 weeks 4 Parity 4 Living Children 4 Feeding plan Breast and Formula Breastfeed previously Yes Duration 2 months Used pump previously Yes Duration (weeks) 4 weeks plans As long as possible Breast Pump Has Breast Pump Electric Delivery method Infant Oral Assessment Oral assessment New assessment Date of 07/09/24 Time of 2104 Infant location Mother Baby Unit Chin Normal Palate assessment Normal Tongue assessment Normal Restricted tongue motion observed None Breast Assessment Breast Assessment Initial Symmetry Symmetrical Size M (B-C) Shape Pendulous Nipple & Areola Assessment Left Areola Pliable Right Areola Pliable Left Nipple Colostrum visible;Everted Right Nipple Colostrum visible;Everted Literature Resources Resources Understanding Mother and Baby Care Education Infant hunger cues;Hand expression;Benefits of breastmilk;Diaper counts/color;Benefits of skin to skin contact;Signs of an effective latch; stomach size;Position changes;Breaking seal;2nd day/growth spurt cluster feeds;Use/settings of pump;Pump frequency;Cleaning of pump parts;Warming of expressed breastmilk;Paced bottle feeding;Burping;Benefits of breast massage and hand expression;Engorgement signs and treatment;Risks of mastitis and signs, seek medical attention immediately;Ways to increase milk supply;Triple feed - offer breast with hunger cues, max 3 hr between feeds, offer supplement after latching and pump 15-25 min Handouts given [place] Islander Immersion Metal Cleaner Observation Pumping Yes Assist with latch Position right side Football; latched effectively;Suckled in coordinated bursts;Audible swallows Interventions Motherlove nipple cream;Placed skin to skin;Breast massage;Taught hand expression Mother demonstrated teach back of Breast massage and hand expression;Positioning and latching infant at breast;Proper use of breast pump equipment Follow up Mom will call staff;Follow up in hospital Recommended Feeding Plan Recommended feeding plan Breastfeed with hunger cues not to exceed 3 hours in between, pump after latching and feed expressed breastmilk, if no latch or expressed breastmilk by 3 hours then feed formula;Supplement using bottle nipple;Frequent [id number]-vu-[id number] time with parents;Pump/hand express minimum 8 times in 24 hours including nights. Pump for 15-25 min. OTHER $ SERVICES Initial LE Jenkins, RN, IBCLC Faby Santoyo RN [facility] 2024-07-10 09:04:25 Problem: Discharge Planning - Goal: Adequate for discharge Outcome: Progressing as expected Goal: Mood stable Outcome: Progressing as expected Problem: Breast-feeding - Ineffective Goal: Effective breast-feeding Outcome: Progressing as expected Problem: Falls, Risk of Goal: Absence of falls Outcome: Progressing as expected Problem: Bleeding, Risk of Goal: Absence of active bleeding Outcome: Progressing as expected [facility] 2024-07-10 06:48:00 Patient: Vito Levine Procedure Summary Date: 07/09/24 Room / Location: Anesthesia Start: 2022 Anesthesia Stop: 2155 Procedure: CENTRAL NEURAXIAL BLOCK Diagnosis: Scheduled Providers: Responsible Provider: Jaclyn Catherine MD Anesthesia Type: Epidural ASA Status: 2 Anesthesia Type: Epidural Last vitals BP Temp Pulse Resp SpO2 There were no known notable events for this encounter. Anesthesia Post Evaluation Patient location during evaluation: PACU Patient participation: complete - patient participated Level of consciousness: awake and alert Pain management: satisfactory to patient Airway patency: patent Cardiovascular status: acceptable and blood pressure returned to baseline Respiratory status: acceptable Hydration status: acceptable AN-ANESTHESIOLOGY ANESTHESIOLOGIST [facility] 2024-07-09 21:18:38 DELIVERY BY SPONTANEOUS VAGINAL DELIVERY Delivery Date: 07/09/2024 Delivery Time: 9:05 PM Delivery Summary The patient was admitted to the Labor & Delivery unit for labor at 34+ weeks due to contractions. Delivery Physician: Ashli Galvan MD Intrapartum Anesthesia/Analgesia: Epidural Mode of Delivery: Delivery of horn fetus with cephalic presentation Fetus Spontaneous vaginal delivery of head with cephalic position, occipital anterior. As the head crowned and distended the perineum, no episiotomy was performed. A blue towel was used to protect the perineum as the head crowned and delivered. The other hand was used to exert pressure on the occiput to control the delivery of the head. The perineum was pushed with a towel-draped hand as the head and mouth was delivered over the perineum. The head was allowed to rotate externally to achieve natural body posture. Examination of neck revealed no umbilical cord. The shoulder was delivered by gentle downward traction applied to head and downward traction for the delivery of anterior shoulder. This was followed by upward traction with delivery of posterior shoulder and body. After the delivery of , bulb suction was performed from ororpharynx and nostril with removal of clear amniotic fluid. A normal, male was delivered. The umbilical cord was double clamped, cut and the infant was handed off the field to the circulating nurse Placenta Placenta was delivered spontaneously while the abdominal hand lifted the uterus cephalad and other hand keeping the umbilical cord slightly taut. Laceration Laceration Repair: No laceration repair needed. Fourth Stage Fourth stage of labor was managed by uterine massage with abdominal hand and infusion 20 units of pitocin mixed with intravenous fluid. EBL: 0 50 ml Complications: none Weight: 2540 g 1 Minute 5 Minute 10 Minute Totals: 8 9 [facility] 2024-07-09 20:42:58 Name/ MRN / Age / Gender: Vito Levine, [id number] 24 year old female BMI: Estimated body mass index is 29.23 kg/m? as calculated from the following: Height as of an earlier encounter on 07/09/24: 1.6 m (5' 3"). Weight as of an earlier encounter on 07/09/24: 74.8 kg (165 lb). Allergies: Patient has no known allergies. Last Vitals: BP Readings from Last 1 Encounters: 07/09/24 113/76 Pulse Readings from Last 1 Encounters: 07/09/24 88 SpO2 Readings from Last 1 Encounters: 07/09/24 97% Date of Surgery: 07/09/2024 Surgeon: * No surgeons listed * Procedure: CENTRAL NEURAXIAL BLOCK OR Location: [place] [facility] OUT OF OR - OR LOCATION Anesthesia Preop Eval (physical exam) Anesthesia Preop: [id number] NPO Status Verified Clear Liquids: > 2 Hours Solid Food/Non-Clear Liquids: > 8 Hours PONV Risk Factors: female Anesthesia History Anesthesia History Negative Previous Anesthetics/Airways Cardiovascular Negative Cardiac ROS Pulmonary Negative Pulmonary ROS Neuro/Musculoskeletal Negative Neuro/Musculosketal ROS GI/Hepatic Negative GI/Hepatic ROS Hematology Negative Hematology ROS Renal Negative Renal ROS Skin Endo/Other Negative 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 Hold on DOS. Phentermine: Alert [facility] anesthesiologist SGLT2 Inhibitors: "gliflozins" to be held for 3 days prior to elective surgeries GLP1 Agonosit: stop 7 days prior to surgery MAC Cases: Continue taking KAYDEN inhibitors and ARBs ASA Classification ASA: 2 Labs: Chemistry - CBC 07/09/2024 - - - - 11.31 (H) 10.2 (L) 226 - - - 30.9 (L) eGFR: - Date: - ANC: 8.57 (H) Date: 07/09/2024 LFTs - Coags AST: - AP: - Prot: - Ca: - PT: - Date: - ALT: - T [place]: - Alb: - PTT: - Date: - PO4: - Date: - INR: - Date: - Cardiac Endocrine & other pBNP: - Date: - A1C: - Date: - Trop I: - Date: - POCT A1C: - Date: - CK: - Date: - TSH: - Date: - CKMB: - Date: - FT4: - Date: - LDL: - Date: - Lact: - Date: - Procal: - Date: - Respiratory -|-|-|-|- D-dimer: - ABG Date: - Date: - Miscellaneous Type and Screen: O POSITIVE Antibody: Negative Date: 07/09/2024 POCT : Positive Date: 12/19/2023 Current Medications: No outpatient medications have been marked as taking for the 07/09/24 encounter (Hospital Encounter). Previous Surgeries: No past surgical history on file. Anesthesia Physical Exam General no apparent distress and alert and oriented x 3 Neuro/Psych Dental Abdominal (+) gravid Airway Mallampati score:II TM distance:> 5 cm Neck ROM: full Mouth opening:normal Extremity Pulmonary pulmonary exam normal Other Cardiovascular cardiovascular exam normal Anesthesia Plan ASA Status: 2 Anesthetic plan on DOS: Epidural Anesthesia plan discussed with: patient or solar sales representative and assessor Post-Operative Analgesia: routine analgesia & antiemetics Recovery Plan: PACU Additional comments: [facility] 2024-07-09 20:42:27 Intrapartum Progress Note 07/09/2024 8:42 PM Subjective: Patient complains of some pressure Objective: Vitals last 24 hours: Temp: [35.9 ?C (96.7 ?F)] 35.9 ?C (96.7 ?F) Pulse: [88-101] 88 BP: (113-118)/(69-76) 113/76 Intake/Output : No intake/output data recorded. No intake/output data recorded. Assessment Active movement: Yes Uterine Activity: Q2-3 min Membrane Status Membrane status: Intact Cervical Exam 8 / 100 % / 0 AROM-clear Assessment/Plan: Vito Levine is a 24 year old at 34w4d Reassuring feal status Anticipate Ashli Galvan MD [facility] 2024-07-09 14:30:00 ROUTINE VISIT 07/09/2024 3:28 PM SUBJECTIVE Vito Levine is a 24 year old at 34w4d who presents for routine visit. She has some complaints today:but denies loss of fluid, vaginal bleeding, and signs or symptoms of pre-eclampsia. Good movement. Complaining of PRESSURE!! OBJECTIVE BP 117/69 (BP Location: Left arm, Patient Position: Sitting, BP CUFF SIZE: Adult Medium) | Pulse 101 | Temp 35.9 ?C (96.7 ?F) | Ht 5' 3" (1.6 m) | Wt 165 lb (74.8 kg) | LMP 10/24/2023 (Exact Date) | BMI 29.23 kg/m? Physical Exam: Gen: A&Ox3, NAD Abd: Soft, gravid, NTTP, ND, no rebound or guarding Ext: No calf tenderness : /-2 ASSESSMENT: Vito Levine is a 24 year old at 34w4d who presents for routine visit. Patient Active Problem List Diagnosis Short interval between pregnancies affecting in third trimester, antepartum 30 weeks gestation of High-risk in second trimester Anemia of mother in , antepartum Normal labor Liveborn , of horn , born in hospital by vaginal delivery Obesity (BMI 30-39.9) uterine contractions in third trimester, antepartum PLAN 1. High-risk in second trimester --07/06/24: 74%ile 2. Anemia of mother in , antepartum --iron+PNV 3. 34 weeks gestation of - POCT Urinalysis w/o Specific [place] IN labor--to Hospital for monitoring. . [facility] [employer] 2024-07-06 14:30:00 Reviewed recent ultrasound results, show: Normal growth, fetus is already 5# 10 oz. . [facility] [employer] 2024-06-25 16:15:00 ROUTINE VISIT 06/25/2024 4:43 PM SUBJECTIVE Vito Levine is a 24 year old at 32w4d who presents for routine visit. She has no complaints today: loss of fluid, vaginal bleeding, and signs or symptoms of pre-eclampsia. Good movement. Occasional contractions. Patient was hospitalized for labor on 06/11/24. OBJECTIVE BP 119/73 (BP Location: Left arm, Patient Position: Sitting, BP CUFF SIZE: Adult Medium) | Pulse 85 | Temp 36.4 ?C (97.6 ?F) | Resp 18 | Ht 5' 4" (1.626 m) | Wt 168 lb (76.2 kg) | LMP 10/24/2023 (Exact Date) | BMI 28.84 kg/m? Physical Exam: Gen: A&Ox3, NAD Abd: Soft, gravid, NTTP, ND, no rebound or guarding Ext: No calf tenderness : /-4 ASSESSMENT: Vito Levine is a 24 year old at 32w4d who presents for routine visit. Patient Active Problem List Diagnosis Short interval between pregnancies affecting in third trimester, antepartum 30 weeks gestation of High-risk in second trimester Anemia of mother in , antepartum Normal labor Liveborn , of horn , born in hospital by vaginal delivery Obesity (BMI 30-39.9) uterine contractions in third trimester, antepartum PLAN 1. High-risk in second trimester --s/p BMZ 06/11,06/12 - ondansetron 4 mg disintegrating tablet; Take 1 tablet by mouth every 8 (eight) hours as needed for Nausea and Vomiting (N/V). Dispense: 20 tablet; Refill: 1 2. 32 weeks gestation of - POCT Urinalysis w/o Specific [place] - TDAP VACCINE, >10 YRS, IM 3. Need for [id number] is (Tdap) vaccine - TDAP VACCINE, >10 YRS, IM [facility] 2024-06-13 14:16:49 Problem: Discharge Planning - Antepartum Goal: Absence of seizure activity 06/13/2024 1416 by Diane Hutchins RN Outcome: Adequate for discharge 06/13/2024923 by Diane Hutchins RN Outcome: Progressing as expected Goal: Adequate for discharge 06/13/2024 1416 by Diane Hutchins RN Outcome: Adequate for discharge 06/13/2024923 by Diane Hutchins RN Outcome: Progressing as expected Goal: Blood pressure within specified parameters 06/13/2024 1416 by Diane Hutchins RN Outcome: Adequate for discharge 06/13/2024923 by Diane Hutchins RN Outcome: Progressing as expected Problem: Falls, Risk of Goal: Absence of falls 06/13/2024 1416 by Diane Hutchins RN Outcome: Adequate for discharge 06/13/2024923 by Diane Hutchins RN Outcome: Progressing as expected Problem: Pain Goal: Control of pain at or below patient's documented comfort goal 06/13/2024 1416 by Diane Hutchins RN Outcome: Adequate for discharge 06/13/2024 0924 by Diane Hutchins RN Outcome: Progressing as expected Goal: Reduction in pain sensation 06/13/2024 1416 by Diane Hutchins RN Outcome: Adequate for discharge 06/13/2024 0924 by Diane Hutchins RN Outcome: Progressing as expected Diane Hutchins RN [facility] 2024-06-13 09:24:23 Problem: Discharge Planning - Antepartum Goal: Absence of seizure activity Outcome: Progressing as expected Goal: Adequate for discharge Outcome: Progressing as expected Goal: Blood pressure within specified parameters Outcome: Progressing as expected Problem: Falls, Risk of Goal: Absence of falls Outcome: Progressing as expected Problem: Pain Goal: Control of pain at or below patient's documented comfort goal Outcome: Progressing as expected Goal: Reduction in pain sensation Outcome: Progressing as expected T [facility] 2024-06-13 00:37:57 Problem: Discharge Planning - Antepartum Goal: Absence of seizure activity Outcome: Progressing as expected Goal: Adequate for discharge Outcome: Progressing as expected Goal: Blood pressure within specified parameters Outcome: Progressing as expected Problem: Falls, Risk of Goal: Absence of falls Outcome: Progressing as expected Problem: Pain Goal: Control of pain at or below patient's documented comfort goal Outcome: Progressing as expected Goal: Reduction in pain sensation Outcome: Progressing as expected Traci Coelho RN [facility] 2024-06-12 12:48:58 Problem: Discharge Planning - Antepartum Goal: Adequate for discharge Outcome: Progressing as expected Problem: Discharge Planning - Antepartum Goal: Blood pressure within specified parameters Outcome: Progressing as expected Problem: Falls, Risk of Goal: Absence of falls Outcome: Progressing as expected Latosha De Santiago RN [facility] 2024-06-11 20:26:56 Problem: Discharge Planning - Antepartum Goal: Absence of seizure activity Outcome: Progressing as expected Problem: Discharge Planning - Antepartum Goal: Absence of seizure activity Outcome: Progressing as expected Problem: Discharge Planning - Antepartum Goal: Absence of seizure activity Outcome: Progressing as expected Goal: Adequate for discharge Outcome: Progressing as expected Goal: Blood pressure within specified parameters Outcome: Progressing as expected Problem: Falls, Risk of Goal: Absence of falls Outcome: Progressing as expected Problem: Pain Goal: Control of pain at or below patient's documented comfort goal Outcome: Progressing as expected Goal: Reduction in pain sensation Outcome: Progressing as expected Roge Crum RN [facility] 2024-06-11 02:37:22 Pt report called to Yumiko RN Antonella Bueno RN [facility] 2024-06-11 02:35:53 Pt arrives ambulatory to ED reporting that she is 31 weeks and is having a lot of pressure in lower abdominal and groin area for about a week. Report called to L&D Shanthi Preciado RN [facility] 2024-06-08 10:56:31 Spoke with patient, name and verified. Patient states she is needing a refill on the Zofran and is still taking it one to two times a day. Confirmed with pharmacy, patient picked up original Rx on 05/11/2024 and then picked up the refill on 05/23/2024. Okay per Dr. Bales, Rx sent electronically. [facility] 2024-06-08 10:44:06 Pt calling to get a refill on her medication for nausea. Sara Leary [facility] 2024-05-15 13:00:00 Gave pt 50 Glucola- No red Dye Allergy- No Issues Pt started @ 1316 Pt finished @ 1317 Will draw pt @ 1417 Kizzy Talavera 05/15/2024 1:19 PM Kizzy Talavera [facility] 2024-05-15 13:00:00 Images from the original note were not included. Venipuncture collection performed by clean technique on the right anticubitus. Total of 1 attempts were made. Slight pressure and a bandage/dressing were applied to the site(s). The patient experienced no complications. The following specimens were processed according to instructions and sent to [facility] laboratories per lab order on 05/15/2024 : LT BLUE SST 2 RED 1 LAV 2 PPT DK GREEN (LiHep) DK GREEN (SodH) HUGO DK BLUE (K2) DK BLUE (S) ACD Blood Culture NIPT/NTD Patient has been identified by and name and was provided with cup, antiseptic towelette, and clean catch instructions. 1 urine specimen(s) sent. Unpreserved 1 Urine Culture Aptima tube Other urine [facility] 2024-05-12 14:30:00 ROUTINE VISIT 05/12/2024 3:13 PM ANGEL Levine is a 24 year old at 26w2d who presents for routine visit. She has some complaints today; denies contractions, loss of fluid, vaginal bleeding, and signs or symptoms of pre-eclampsia. Good movement. Worsening nausea and vomiting. OBJECTIVE BP 104/72 (BP Location: Right arm, Patient Position: Sitting, BP CUFF SIZE: Adult Medium) | Pulse 94 | Temp 36.7 ?C (98.1 ?F) (Oral) | Resp 16 | Ht 5' 4" (1.626 m) | Wt 173 lb (78.5 kg) | LMP 10/24/2023 (Exact Date) | BMI 29.70 kg/m? Physical Exam: Gen: A&Ox3, NAD Pulm: No labored breathing Abd: Soft, gravid, NTTP, ND, no rebound or guarding Ext: No calf tenderness : deferred ASSESSMENT: Vito Levine is a 24 year old at 26w2d who presents for routine visit. Patient Active Problem List Diagnosis Short interval between pregnancies affecting in third trimester, antepartum 39 weeks gestation of High-risk in second trimester Anemia of mother in , antepartum Normal labor Liveborn infant, of horn , born in hospital by vaginal delivery PLAN 1. High-risk in second trimester --d/w pt concerns that increase fatty food/spice and cause more n/v. Also d/w pt 7 pounds gained from last appt. 2. Anemia of mother in , antepartum --PNV + Iron 3. 26 weeks gestation of - ADC or [place] Only - Rpr; Future - Cbc with Diff; Future - Glucose 1 Hour Post Prandial; Future - HIV 1/2 Ag-Ab with Reflex; Future - Workup, Blood Bank; Future - POCT Urinalysis w/o Specific [place] [facility] 2024-05-11 10:54:31 Refill sent to pharmacy. Hitesh Mendez RN 05/11/2024 10:54 AM [facility] 2024-05-11 10:43:18 Pt says she out of refill on nausea med has appt tomorrow but needs med for today. Chasity Brewer [facility] 2024-04-24 15:21:40 Spoke with patient, notified that she was given refill on zofran with rx that was sent in on 04/10/2024. No other questions and concerns. Chely Decker RN 04/24/2024 3:22 PM Chely Decker RN [facility] 2024-04-24 09:00:00 Reviewed recent ultrasound results, show: Normal anatomy will need fu. Discuss at next appt. [facility] 2024-04-23 13:36:30 Pt says she used all refill on Zofran want to know if she can get another refill. Chasity Brewer [facility] 2024-04-10 11:13:29 RX Sent, pt informed. T [facility] 2024-04-10 10:20:05 Yes that's fine. [facility] 2024-04-10 09:16:24 Pt is requesting refill for Zofran be sent in to pharmacy. Please advise T [facility] 2024-04-10 08:24:12 Patient states she was seen Saturday and was suppose to get a refill for Zofran. [facility]/pharmacy #[id number] - [address] Kimmie Lewis [facility] 2024-04-07 10:30:00 ROUTINE VISIT 04/07/2024 10:57 AM SUBJECTIVE Vito Levine is a 24 year old at 21w2d who presents for routine visit. She has no complaints today; denies contractions, loss of fluid, vaginal bleeding, and signs or symptoms of pre-eclampsia. Good movement. Zofran helps with the n/v. Takes about twice a day. OBJECTIVE BP 122/77 (BP Location: Right arm, Patient Position: Sitting, BP CUFF SIZE: Adult Medium) | Pulse 81 | Temp 36.7 ?C (98.1 ?F) (Oral) | Resp 16 | Ht 5' 4" (1.626 m) | Wt 166 lb 4.8 oz (75.4 kg) | LMP 10/24/2023 (Exact Date) | BMI 28.55 kg/m? Physical Exam: Gen: A&Ox3, NAD Pulm: No labored breathing Abd: Soft, gravid, NTTP, ND, no rebound or guarding Ext: No calf tenderness : deferred ASSESSMENT: Vito Levine is a 24 year old at 21w2d who presents for routine visit. Patient Active Problem List Diagnosis Short interval between pregnancies affecting in third trimester, antepartum 39 weeks gestation of High-risk in second trimester Anemia of mother in , antepartum Normal labor Liveborn infant, of horn , born in hospital by vaginal delivery PLAN 1. High-risk in second trimester --continue with Zofran as needed 2. Anemia of mother in , antepartum --recommend PNV + daily iron 3. 21 weeks gestation of - POCT Urinalysis w/o Specific [place] [facility] 2024-03-20 14:13:11 Diane results received via fax. Panorama- low risk, male Spoke with patient, name and verified. Patient informed of results including gender. Results signed, will scan and upload a copy to [facility]. Chely Decker RN 03/20/2024 2:13 PM Chely Decker RN [facility] 2024-03-20 12:55:28 Attempted to contact patient by phone to provide test results, no answer, message left on voicemail to call back. Erika Kemp MA [facility] 2024-03-20 12:42:09 Pt says she getting notification from Diane her results are in she like to discuss. Chasity Brewer [facility] 2024-03-18 13:24:16 Patient notified Diane results are still processing, once resulted and reviewed, she will be contacted with results. Patient verbalized understanding. Chely Decker RN 03/18/2024 1:25 PM Chely Decker RN [facility] 2024-03-18 08:29:41 Patient returned nurse call on results. Chasity Brewer [facility] 2024-03-17 16:00:20 Attempted to contact patient by phone, no answer, message left on voicemail to call back. Chely Decker RN 03/17/2024 4:00 PM [facility] 2024-03-17 15:34:01 Patient is calling want to know if gender results are in. Says she lost information to log in to get results she like some assistance on logging in to access the gender information. [facility] 2024-03-17 08:20:57 LM on advising pt that results are still being processed. KERLINE TRUJILLO RN 03/17/2024 8:21 AM Kerline Trujillo RN [facility] 2024-03-16 13:14:04 Attempted to contact patient by phone, no answer, message left on voicemail to call back. Chely Decker RN 03/16/2024 1:14 PM Chely Decker RN [facility] 2024-03-16 12:45:29 Patient wants to know if gender results are back but doesn't want know results yet. Chasity Brewer [facility] 2024 11:00:00 Images from the original note were not included. Venipuncture collection performed by clean technique on the right anticubitus. Total of 1 attempts were made. Slight pressure and a bandage/dressing were applied to the site(s). The patient experienced no complications. The following specimens were processed according to instructions and sent to [facility] laboratories per lab order on 2024 : LT BLUE SST 4 RED 1 LAV 2 PPT DK GREEN (LiHep) DK GREEN (SodH) HUGO DK BLUE (K2) DK BLUE (S) ACD Blood Culture NIPT/NTD Patient has been identified by and name and was provided with cup, antiseptic towelette, and clean catch instructions. 2 urine specimen(s) sent. Unpreserved 1 Urine Culture 1 Aptima tube Other urine Diane Kit TRK# [id number] [facility] 2024 08:00:00 ROUTINE VISIT 2024 8:52 AM SUBJECTIVE Vito Levine is a 24 year old at 17w2d who presents for routine visit. She has some complaints today; denies contractions, loss of fluid, vaginal bleeding, and signs or symptoms of pre-eclampsia. Pt c/o morning n/v, requests meds. Refill on PNV OBJECTIVE BP 100/62 (BP Location: Right arm, Patient Position: Sitting, BP CUFF SIZE: Adult Large) | Pulse 72 | Temp 36.6 ?C (97.8 ?F) (Oral) | Resp 15 | Ht 5' 4" (1.626 m) | Wt 163 lb 12.8 oz (74.3 kg) | LMP 10/24/2023 (Exact Date) | No | BMI 28.12 kg/m? FHT: 125 Physical Exam: Gen: A&Ox3, NAD Pulm: No labored breathing Abd: Soft, gravid, NTTP, ND, no rebound or guarding Ext: No calf tenderness ASSESSMENT: Vito Levine is a 24 year old at 17w2d who presents for routine visit. Patient Active Problem List Diagnosis Short interval between pregnancies affecting in third trimester, antepartum 39 weeks gestation of High-risk in third trimester Anemia of mother in , antepartum Normal labor Liveborn , of horn , born in hospital by vaginal delivery PLAN 1. 17 weeks gestation of - POCT Urinalysis w/o Specific [place] - Urine Drug (Immunoassay) - Comprehensive Drug Screen; Future - ADC or Sil[place] Only - Rpr; Future - Hcv Antibody; Future - Hepatitis B Surface Antigen; Future - HIV 1/2 Ag-Ab with Reflex; Future - Glycosylated Hemoglobin (A1C); Future - Rubella Screen IgG; Future - Sickle Cell Screen; Future - Urine Culture; Future - Urine Drug (Immunoassay) - Comprehensive Drug Screen; Future - VZV Antibody Screen; Future - Cbc with Diff; Future - Alpha Fetoprotein-Maternal Ser; Future 2. High-risk in second trimester - ondansetron 4 mg disintegrating tablet; Take 1 tablet by mouth every 8 (eight) hours as needed for Nausea and Vomiting (N/V). Dispense: 20 tablet; Refill: 1 - vitamin w/FA tablet; Take 1 tablet by mouth in the morning. Dispense: 100 tablet; Refill: 3 Ashli Galvan MD [facility] 2024-02-07 16:26:38 Spoke with patient, lab orders with [facility] requisition filled out and placed at front for pickup. Chely Decker RN 02/07/2024 4:27 PM Chely Decker RN [facility] 2024-02-07 11:21:08 Patient is requesting lab orders to do them at [facility]. Please call and advise. Kimmie Lewis [facility] 2023-12-26 14:58:15 Spoke with patient, states that she feels the otc unisom and b6 aren't going to work. Educated patient on how to take it and its effects. Patient informed of the risk involved with taking Zofran in early , verbalized understanding. Patient going to try the otc medications first and then will call if still no improvement. Chely Deckre RN 12/26/2023 3:06 PM FIELD SERVICE MANAGER Chely Decker RN [facility] 2023-12-26 14:50:47 Pt says she needs med for nausea and vomiting says otc is not helping. FIELD SERVICE MANAGER Chasity Brewer [facility] 2023-12-26 10:00:00 ROUTINE VISIT 12/26/2023 11:06 AM ANGEL Levine is a 23 year old at 6w4d who presents for routine visit. She has complaints nausea and vomiting. today; denies contractions, loss of fluid, vaginal bleeding, and signs or symptoms of pre-eclampsia. OBJECTIVE BP 116/64 (BP Location: Right arm, Patient Position: Sitting, BP CUFF SIZE: Adult Medium) | Pulse 84 | Temp 36.7 ?C (98.1 ?F) (Oral) | Resp 16 | Ht 5' 4" (1.626 m) | Wt 157 lb (71.2 kg) | LMP 10/24/2023 (Exact Date) | No | BMI 26.95 kg/m? Physical Exam: Gen: A&Ox3, NAD Pulm: No labored breathing Abd: Soft, gravid, NTTP, ND, no rebound or guarding Ext: No calf tenderness : Closed Transvaginal Ultrasound performed: present gestational sac present yolk sac 6w4d [place] rump length, not consistent with LMP. AILYN 08/16/24 145 heart rate ASSESSMENT: Vito Levine is a 23 year old at 6w4d who presents for routine visit. Patient Active Problem List Diagnosis Short interval between pregnancies affecting in third trimester, antepartum 39 weeks gestation of High-risk in third trimester Anemia of mother in , antepartum Normal labor Liveborn , of horn , born in hospital by vaginal delivery PLAN 1. examination or test, positive result - POCT Urinalysis w/o Specific [place] - OB Ultrasound Transvaginal 2. High-risk in first trimester --Recommend trying Unsiom and Vit B6. Reviewed with pt first trimester risks with zofran. - OB Ultrasound Transvaginal 3. 6 weeks gestation of --Reviewed US findings Ashli Galvan MD [facility] 2023-12-23 10:25:07 Offered patient [facility] lab testing as she is not able to make it to [place] to do lab testing. Requisition for [facility] filled out and placed at front office clerk for patient pickup. LM for patient notifying of lab order ready at front office clerk. Chely Decker RN 12/23/2023 10:26 AM FIELD SERVICE MANAGER Chely Decker RN [facility] 2023-12-23 09:04:39 Pt says she can't not go to [facility] needs closer like in [facility]. FIELD SERVICE MANAGER Chasity Brewer [facility] 2023-08-06 12:51:24 Formatting of this n ote might be different from the original. Patient notified that rx was sent into pharmacy on file. No questions or concerns expressed. Chely Decker RN 08/06/2023 12:51 PM Chely Decker RN [facility] 2023-08-06 09:19:12 Formatting of this n ote might be different from the original. Zofran sent Howe notify patient Martha Lyles MD [facility] 2023-08-05 16:35:53 Formatting of this n ote might be different from the original. Patient came into clinic with spouse c/o severe nausea. Has tried otc with no relief. States that she was on zofran prior to switching care. Patient requesting rx for nausea. Informed patient I would notify provider of her request. Chely Decker RN 08/05/2023 4:36 PM [facility] 2023-08-05 16:27:34 Formatting of this n ote might be different from the original. Pt came into clinic today requesting nausea medication. Gypsy Caro [facility] 2023-07-31 14:30:00 Formatting of this n ote might be different from the original. Age: [age] year old GA: 32w5d NOB/Transfer of care Vito Levine is a 23 year old at 32w5d based on ultrasound, as per patient presents for Initial OB visit today, a transfer from care from [place]. Family moved for work and to be closed to family. She report intermittent pelvic pressure but denies contractions, leakage of fluid or vaginal bleeding. She reports good movements. Denies symptoms of preeclampsia. In a stable relationship, denies domestic or immediate partner abuse She reports adequate and uncomplicated PNC, last visit was 3 weeks ago Reports that all her PNL were normal including recent 28 weeks labs. No anatomy scan with low risk NIPT screening- she is having a female MICHAEL signed for records Assessment/Plan High-risk in third trimester (primary encounter diagnosis) 32 weeks gestation of - Reviewed PNC at this stage of -3rd trimester teaching done- reviewed S/S of PTL (contractions, leakage of fluid and Vaginal bleeding) and also FKC. Also dicussed B-H, pelvic and lower back pains- expectations and differences with S/S of PTL She plans to bottle feed BC options reviewed- considering Depo or IUD Peds: On-call - PTL precautions and FKC's reviewed with patient Monitor for vaginal bleeding, loss of fluid, and/or contractions - Monitor for symptoms of preeclampsia (headache, visual disturbances, epigastric (under right ribs) pain, and increased blood pressure - If there is a perceived decrease in movement, monitor kick counts. Drink glass of water or juice and rest on left side for approximately two hours. If you feel 10 kicks (movements) over a period of two hours, this is normal. If you do not feel the fetus moving, present to OB clinic or antepartum unit at the [facility] Plan: POCT URINALYSIS W/O SPECIFIC GRAVITY Short interval between pregnancies affecting in third trimester, antepartum - Lat child was a year ago. and delivery were uncomplicated Pelvic pressure in , antepartum, third trimester - reviewed measures to alleviate related symptoms. Recommend support belts Return to clinic in 2 weeks for GUERDA or PRN Martha Lyles MD 07/31/2023 4:19 PM T [facility]
--- NOTE | 2025-03-10 13:34 | ER ---
Nurse's Notes [facility] Name: Melita Manuel Age: 25 yrs Sex: Female : 2000 Arrival Date: 03/10/2025 Time: 13:10 Bed IW7 Private MD: Diagnosis: Encounter for removal of sutures Presentation: 03/10 13:21 Chief complaint: Patient states: SUTURE REMOVAL ON FOREHEAD. THERE FOR 20 DAYS. db Coronavirus screen: Client denies travel out of the [place] in the last 14 days. At this time, the client does not indicate any symptoms associated with coronavirus-19. Ebola Screen: Patient negative for fever greater than or equal to 101.5 degrees Fahrenheit, and additional compatible Ebola Virus Disease symptoms Patient denies exposure to infectious person. Patient denies travel to an Ebola-affected area in the 21 days before illness onset. No symptoms or risks identified at this time. Initial Sepsis Screen: Does the patient meet any 2 criteria? No. Patient's initial sepsis screen is negative. Does the patient have a suspected source of infection? No. Patient's initial sepsis screen is negative. Risk Assessment: Do you want to hurt yourself or someone else? Patient reports no desire to harm self or others. Onset of symptoms was March 10, 2025. 13:21 Method Of Arrival: Ambulatory db 13:21 Acuity: FROY 3 db Triage Assessment: 13:23 General: Appears in no apparent distress. comfortable, Behavior is calm, cooperative. db Pain: Denies pain. Derm: Skin is intact, SUTURE TO FOREHEAD. 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 - Infectious Disease History:: Denies. - Social history:: Smoking status: Patient denies any tobacco usage or history of. Screenin:[address] [facility] ED Fall Risk Assessment (Adult) History of falling in the last 3 months, db including since admission Yes- single mechanical fall (1 pt) Confusion or Disorientation No (0 pts) Intoxicated or Sedated No (0 pts) Impaired Gait No (0 pts) Mobility Assist Device Used No (0 pt) Altered Elimination No (0 pt) Score/Fall Risk Level 0 - 2 = Low Risk Oriented to surroundings, Maintained a safe environment. Abuse screen: Denies threats or abuse. Denies injuries from another. Nutritional screening: No deficits noted. Tuberculosis screening: No symptoms or risk factors identified. Assessment: 13:25 Reassessment: Patient appears in no apparent distress at this time. Patient and/or db family updated on plan of care and expected duration. Pain level reassessed. Patient is alert, oriented x 3, equal unlabored respirations, skin warm/dry/pink. General: Appears in no apparent distress. comfortable, Behavior is calm, cooperative, appropriate for age. Derm: SUTURE TO FOREHEAD. Vital Signs: 13:21 BP 126 / 75; Pulse 62; Resp 18; Temp 97.6; Pulse Ox 100% ; Weight 68.04 kg; Height 5 db ft. 3 in. ; 13:21 Body Mass Index 26.57 (68.04 kg, 160.02 cm) db ED Course: 13:11 Patient arrived in ED. im 13:13 Meaghan Garcia PA-C [facility]. sb4 13:13 Mega Hernandez MD is Attending Physician. sb4 13:23 Triage completed. db 13:23 Arm band placed on right wrist. db 13:25 Patient has correct armband on for positive identification. Provided Education on: db SUTURE REMOVAL. Verbal reassurance given. 13:25 Removal of Removed sutures from forehead Suture site is well healed Patient tolerated db well. 13:27 No provider procedures requiring assistance completed. Patient did not have IV access db during this emergency room visit. Administered Medications: No medications were administered Medication: 13:25 VIS not applicable for this client. db Outcome: 13:27 Discharged to home ambulatory, db 13:27 Condition: stable 13:27 Discharge instructions given to patient, Instructed on discharge instructions, follow up and referral plans. 13:34 Discharge ordered by . sb4 13:39 Patient left the ED. db Signatures: Simona Stapleton RN RN Meaghan Vera PA-C PA-C sb4 Cass Maria im
--- NOTE | 2025-03-10 13:34 | EDPHYS ---
Physician Documentation [facility] Name: Melita Manuel Age: 25 yrs Sex: Female : 2000 Arrival Date: 03/10/2025 Time: 13:10 Bed IW7 Private MD: ED Physician Mega Hernandez HPI: 03/10 13:35 This 25 yrs old Female presents to ER via Ambulatory with complaints of Suture sb4 Removal. 13:35 The patient has sutures on the forehead. Previous treatment: The patient was initially sb4 treated 20 day(s) ago, the care was rendered at [facility], Treatment type: The patient's original treatment included oral antibiotics, Keflex, sutures, Outpatient prescription(s): The patient was given prescription(s) for Keflex, Previous recheck: the patient has not been checked since the original treatment. Sutures/senait progress: The patient has no c/o's. The wound is well-healing with no redness, swelling, discharge, or dehiscence reported. [employer] CASTING: 13:23 LMP 02/23/2025, unknown db Historical: - Allergies: 13:23 No Known Allergies; db - PMHx: 13:23 None; db - Immunization history:: Adult Immunizations unknown. - Infectious Disease History:: Denies. - Social history:: Smoking status: Patient denies any tobacco usage or history of. ROS: 13:35 Constitutional: Negative for fever, chills, and weight loss, sb4 13:35 Skin: Positive for laceration(s), of the forehead, 13:35 All other systems are negative, Exam: 13:35 Constitutional: This is a well developed, well nourished patient who is awake, alert, sb4 and in no acute distress. Head/Face: Normocephalic, atraumatic. Eyes: Extra-ocular motions intact. Periorbital areas with no swelling, redness, or edema. ENT: Mucous membranes moist. Respiratory: No increased work of breathing, no retractions or nasal flaring. 13:35 Skin: Wound recheck: Suture laceration closure: the wound is healing well, the edges are well approximated, no evidence of dehiscence, no drainage, no erythema, no swelling, Vital Signs: 13:21 BP 126 / 75; Pulse 62; Resp 18; Temp 97.6; Pulse Ox 100% ; Weight 68.04 kg; Height 5 db ft. 3 in. ; 13:21 Body Mass Index 26.57 (68.04 kg, 160.02 cm) db Procedures: 13:36 Suture/Staple removal: Removed 8 sutures, from forehead, site appears well healed, sb4 dressed with band aid, Neosporin, Patient tolerated well. MDM: 13:16 Medical Screening Exam initiated sb4 13:36 Data reviewed: vital signs, nurses notes, and as a result, I will discharge patient. sb4 Counseling: I had a detailed discussion with the patient and/or guardian regarding the historical points, exam findings, and any diagnostic results supporting the discharge/admit diagnosis, the need for outpatient follow up, for definitive care, to return to the emergency department if symptoms worsen or persist or if there are any questions or concerns that arise at home. Administered Medications: No medications were administered Disposition: 15:03 Co-signature as Attending Physician, Mega Hernandez MD I reviewed the patient's care rt provided by the Advanced Practice Provider and agree with the diagnosis and treatment plan. Disposition Summary: 03/10/25 13:34 Discharge Ordered Notes: Location: Home sb4 Problem: new sb4 Symptoms: have improved sb4 Condition: Stable sb4 Diagnosis - Encounter for removal of sutures sb4 Followup: sb4 - With: Private Physician - When: 1 week - Reason: Recheck today's complaints, Re-evaluation by your physician Discharge Instructions: - Discharge Summary Sheet sb4 - Suture Removal, Care After sb4 Forms: - Patient Portal Instructions sb4 - Leadership Thank You Letter sb4 Signatures: Simona Stapleton, RN RN Meaghan Vera PAMakaylaC PA-C sb4 Mega Hernandez MD MD rt
[2025-03-10 13:43] VITALS: BP 126/75; TEMP 97.6; O2SAT 100
== END 2025-03-10 13:39 | disposition home or self-care (01) ==
LOC: ER 13:10
DX: Z48.02 Encounter for removal of sutures (principal)